=== PATIENT | male | born 1940 | race Caucasian/White ===

== ENCOUNTER 2019-01-13 13:09 | Inpatient (IN) ==
--- NOTE | 2019-01-13 13:51 | Emergency Department Note ---
Disposition Clinical Impression: Mobitz type 1 second degree AV block, Symptomatic bradycardia Disposition: Admitted As Inpatient Condition: Fair Time of Disposition: 20:00 General Adult HPI - General Stated complaint: "slow heart rate" Time Seen by Provider: 01/13/19 13:21 Source: patient Limitations: no limitations - History of Present Illness Pain Scale: 0 - Related Data Home Medications Medication Instructions Recorded Confirmed Carvedilol 12.5 mg PO BID 04/14/17 01/13/19 Levothyroxine [Synthroid] 50 mcg PO 0630 04/14/17 01/13/19 Lisinopril-HCTZ 20-12.5 [Prinzide 1 each PO DAILY 04/14/17 01/13/19 20-12.5] Potassium Chloride [K-Tab ER] 20 meq PO DAILY 04/14/17 01/13/19 Simvastatin [Zocor] 20 mg PO HS 04/14/17 01/13/19 Allergies Allergy/AdvReac Type Severity Reaction Status Date / Time ciprofloxacin [From Cipro] Allergy Unknown Rash Verified 01/13/19 13:16 Sulfa (Sulfonamide Allergy Unknown Vomiting Verified 01/13/19 13:16 Antibiotics) coban Allergy Mild Rash Uncoded 01/13/19 13:16 All systems ED: reviewed and negative except as stated. Past Medical History - Past Medical History Medical history: Reports: arthritis, atrial fibrillation, cancer, hypertension, thyroid disease, TIA Surgical history: Reports: herniorrhaphy, orthopedic, other, prostatectomy, va sectomy Psychiatric history: Reports: no psych history - Social History Smoking Status: Never smoker Smokeless Tobacco Status: No Alcohol use: Reports: none Drug use: Reports: none Physical Exam CONSTITUTIONAL: Alert and oriented X3, well-nourished, well appearing, in no apparent distress HEAD: Normocephalic; atraumatic. EYES: PERRL, no scleral icterus. NOSE: The nose is normal in appearance without rhinorrhea RESP: Normal chest excursion with respiration; breath sounds clear and equal bilaterally; no wheezes, rhonchi, or rales CARD: Regular rhythm, without murmurs, rub or gallop ABD: Non-distended; non-tender, soft,without rigidity, rebound or guarding SKIN: Normal for age and race; warm and dry; no apparent lesions EXTREMITIES: Pulses are 2 plus and equal times 4 extremities, no peripheral edema or calf muscle pain. - General Limitations: no limitations General appearance: alert, in no apparent distress Course Vital Signs Temperature 98.5 F 01/13/19 13:25 Pulse Rate 42 01/13/19 13:25 Respiratory Rate 18 01/13/19 13:25 Blood Pressure 160/59 01/13/19 13:25 O2 Sat by Pulse Oximetry 97 01/13/19 13:25 Temperature 97.8 F 01/13/19 18:39 Pulse Rate 36 01/13/19 18:39 Respiratory Rate 15 01/13/19 18:39 Blood Pressure 187/49 01/13/19 18:39 O2 Sat by Pulse Oximetry 97 01/13/19 18:39 Oxygen Delivery Oxygen Delivery Room Air Medical Decision Making - MDM Narrative Medical decision making narrative: Patient's EKG is consistent with type II AV block and the patient is asymptomatic at this time and is not hypotensive and the patient will be admitted to the hospital and monitored. The beta tho medication could be playing a part. He does have chronic left bundle-branch block. Labs are ordered, chest x-ray. Results pending. EKG shows normal sinus rhythm with rate of 65 with AV block and left bundle-branch block 1351 - Lab Data Result diagrams: 01/13/19 13:43 01/13/19 13:43 Lab Results 01/13/19 01/13/19 Range/Units 13:43 13:43 WBC 8.6 (4.3-11.1) K/mcL RBC 4.65 (4.19-5.50) M/mcL Hgb 14.7 (12.9-16.9) g/dL Hct 44.0 (37.5-50.1) % MCV 94.6 (83.0-100.0) fL MCH 31.6 (28.0-33.3) pg MCHC 33.4 (31.6-35.5) g/dL RDW 14.5 (11.5-14.5) % Plt Count 186 (140-400) K/mcL MPV 11.8 (9.4-12.4) fL Sodium 140 (136-145) mEq/L Potassium 4.2 (3.5-5.1) mEq/L Chloride 108 H (98-107) mEq/L Carbon Dioxide 25 (23-29) mEq/L BUN 23 (8-23) mg/dL Creatinine 0.97 (0.70-1.30) mg/dL Est GFR ( Amer) > 60 (> 60) Est GFR (Non-Af Amer) > 60 (> 60) BUN/Creatinine Ratio 24 (6-26) Glucose 108 H (70-105) mg/dL Calculated Osmolality 294 (280-300) Calcium 8.8 (8.6-10.3) mg/dL Magnesium 2.1 (1.6-2.6) mg/dL Troponin I < 0.03 (< 0.04) ng/mL TSH 1.826 (0.340-5.600) mcIU/mL Attestation Statement - Attestation Attestation: Physician attestation I saw and evaluated the patient and and reviewed the resident's note/PA note/CURTAIN FELLER BLINDSTITCH note, and I agree with the findings and plan. I personally supervised and was present for the beard/critical portions of any procedures. The medical decision- making was reviewed with the BU[employer] M[employer] OPERATOR/PA/Advanced Practice Nurse/Resident Physician. I agree with the documented findings, disposition and treatment plan as described except to the extent set forth below. The patient presents because yesterday at home he checked his pulse and was low and this has been intermittent since yesterday and was still low today so called the doctor's office and asked him to come here. Has a feeling that he is about to get lightheaded but currently no lightheadedness. No chest pain or tightness or discomfort or pressure. No dyspnea. Does have some diaphoresis. He did take his beta tho medication today. No blood in the urine or stool. Social history: No smoking or alcohol. He is here with his .
[2019-01-13 14:09] LABS: Hemoglobin 14.7 g/dL (12.9-16.9); Mean Corpuscular HGB Conc 33.4 g/dL (31.6-35.5); Mean Corpuscular Hemoglobin 31.6 pg (28.0-33.3); Mean Corpuscular Volume 94.6 fL (83.0-100.0); Mean Platelet Volume 11.8 fL (9.4-12.4); Platelet Count 186 K/mcL (140-400); Red Blood Count 4.65 M/mcL (4.19-5.50); Red Cell Distribution Width 14.5 % (11.5-14.5); White Blood Count 8.6 K/mcL (4.3-11.1)
[2019-01-13 14:17] LABS: BUN/Creatinine Ratio 24 (6-26); Blood Urea Nitrogen 23 mg/dL (8-23); Calcium 8.8 mg/dL (8.6-10.3); Carbon Dioxide 25 mEq/L (23-29); Chloride 108 mEq/L (98-107); Glucose 108 mg/dL (70-105); Osmolality,Calculated 294 (280-300); Potassium 4.2 mEq/L (3.5-5.1); Sodium 140 mEq/L (136-145); Troponin I < 0.03 ng/mL (< 0.04); eGFR For African Americans > 60 (> 60); eGFR For Non-African Americans > 60 (> 60)
--- NOTE | 2019-01-13 14:38 | Emergency Department Note ---
Disposition Clinical Impression: Mobitz type 1 second degree AV block, Symptomatic bradycardia Disposition: Admitted As Inpatient Time of Disposition: 16:24 General Adult HPI - General Chief complaint: ED Arrhythmia/Palpitations Stated complaint: "slow heart rate" Time Seen by Provider: 01/13/19 13:21 Source: patient Limitations: no limitations Nursing Notes Reviewed: Yes Vital Signs Reviewed: Yes - History of Present Illness HPI Narrative: Mr. Joseph is a 78-year-old male with history of A. fib on xarelto, hypertension, TIA, hypothyroidism, presenting to the emergency department with progressively worsening generalized fatigue and weakness. He reports having brief episodes of lightheadedness, fatigue, and dyspnea, that seemed to be worsened with exertion. Yesterday he noted that his heart rate was down in the 30s, and that is what prompted him to come to the emergency department today. He denies syncope, chest pain or pressure, cough, abdominal pain, nausea, vomiting, change in bowels, or change in lower extremity edema. He reports his right lower extremity is always a little bit more swollen than his left lower ex tremity, from a prior injury. Has a history of A. fib, and has had ablations in the past. He is on a beta tho. Denies any recent changes in medications. Pain Scale: 0 - Related Data Home Medications Medication Instructions Recorded Confirmed Carvedilol 12.5 mg PO BID 04/14/17 01/13/19 Levothyroxine [Synthroid] 50 mcg PO 0630 04/14/17 01/13/19 Lisinopril-HCTZ 20-12.5 [Prinzide 1 each PO DAILY 04/14/17 01/13/19 20-12.5] Potassium Chloride [K-Tab ER] 20 meq PO DAILY 04/14/17 01/13/19 Simvastatin [Zocor] 20 mg PO HS 04/14/17 01/13/19 Allergies Allergy/AdvReac Type Severity Reaction Status Date / Time ciprofloxacin [From Cipro] Allergy Unknown Rash Verified 01/13/19 13:16 Sulfa (Sulfonamide Allergy Unknown Vomiting Verified 01/13/19 13:16 Antibiotics) coban Allergy Mild Rash Uncoded 01/13/19 13:16 Review of Systems: Admits to slow hear rate, fatigue, generalized weakness, and intermittent dyspnea. Denies syncope, chest pain or pressure, cough, abdominal pain, nausea, vomiting, change in bowels, dysuria, numbness, tingling, or change in lower extremity edema. Past Medical History - Past Medical History Medical history: Reports: arthritis, atrial fibrillation, cancer, hypertension, thyroid disease, TIA Surgical history: Reports: herniorrhaphy, orthopedic, other, prostatectomy, vasectomy Psychiatric history: Reports: no psych history - Social History Smoking Status: Never smoker Smokeless Tobacco Status: No Alcohol use: Reports: none Drug use: Reports: none Physical Exam GEN: No acute distress, A&O3 HEAD: Atraumatic, normocephalic EYES: Pupils symmetric, sclera white, conjunctiva pink HEART: Irregularly irregular, bradycardia, no murmurs LUNGS: Clear to auscultation bilaterally, no wheezes, rhonchi, or crackles ABD: Soft, nontender, nondistended, no guarding or rigidity EXT: Trace edema left lower extremity, +1 pitting edema right lower extremity (chronic and unchanged), pulses +2 NEURO: No focal deficits, cooperative with exam, sensation of light touch intact throughout, strength equal and symmetric in upper extremity and lower extremity - General Limitations: no limitations General appearance: alert, in no apparent distress Course Vital Signs Temperature 98.5 F 01/13/19 13:25 Pulse Rate 42 01/13/19 13:25 Respiratory Rate 18 01/13/19 13:25 Blood Pressure 160/59 01/13/19 13:25 O2 Sat by Pulse Oximetry 97 01/13/19 13:25 Temperature 97.8 F 01/13/19 18:39 Pulse Rate 36 01/13/19 18:39 Respiratory Rate 15 01/13/19 18:39 Blood Pressure 187/49 01/13/19 18:39 O2 Sat by Pulse Oximetry 97 01/13/19 18:39 Oxygen Delivery Oxygen Delivery Room Air Medical Decision Making - [facility] Narrative Medical decision making narrative: Patient's EKG shows a Mobitz type I block, heart rate 65, and old left bundle branch block. His heart rate is fluctuating between the 30s to 60s. He is not having any pain, but he has been symptomatic with light-headedness and fatigue. He is on a beta tho and this could be playing a role in his bradycardia. CBC and chemistries unremarkable. Troponin negative. TSH normal. Patient will be admitted to the hospital for beta tho washout, and potential pacemaker evaluation. Discussed the case with the admitting hospitalist, Dr. Urias, who is accepted this admission. - Lab Data Result diagrams: 01/13/19 13:43 01/13/19 13:43 Lab Results 01/13/19 01/13/19 Range/Units 13:43 13:43 WBC 8.6 (4.3-11.1) K/mcL RBC 4.65 (4.19-5.50) M/mcL Hgb 14.7 (12.9-16.9) g/dL Hct 44.0 (37.5-50.1) % MCV 94.6 (83.0-100.0) fL MCH 31.6 (28.0-33.3) pg MCHC 33.4 (31.6-35.5) g/dL RDW 14.5 (11.5-14.5) % Plt Count 186 (140-400) K/mcL MPV 11.8 (9.4-12.4) fL Sodium 140 (136-145) mEq/L Potassium 4.2 (3.5-5.1) mEq/L Chloride 108 H (98-107) mEq/L Carbon Dioxide 25 (23-29) mEq/L BUN 23 (8-23) mg/dL Creatinine 0.97 (0.70-1.30) mg/dL Est GFR ( Amer) > 60 (> 60) Est GFR (Non-Af Amer) > 60 (> 60) BUN/Creatinine Ratio 24 (6-26) Glucose 108 H (70-105) mg/dL Calculated Osmolality 294 (280-300) Calcium 8.8 (8.6-10.3) mg/dL Magnesium 2.1 (1.6-2.6) mg/dL Troponin I < 0.03 (< 0.04) ng/mL TSH 1.826 (0.340-5.600) mcIU/mL
[2019-01-13 15:49] LABS: Thyroid Stimulating Hormone 1.826 mcIU/mL (0.340-5.600)
[2019-01-13] MEDS ORDERED: Naloxone 0.4 MG/ML INJ IVP PRN (16:57)
[2019-01-13] MEDS ORDERED: Acetaminophen 325 MG TABLET PO PRN (16:57)
[2019-01-13 17:15] LABS: Magnesium 2.1 mg/dL (1.6-2.6)
--- NOTE | 2019-01-13 17:35 | Internal Med History&Physical ---
<Barry Malone - Last Filed: 01/13/19 18:38> Date of Encounter: 01/13/19 Time of Encounter: 17:45 Internal Medicine - H&P: HPI Chief complaint: lightheadedness Admitted From: Home Plans for Post Hospital Care: Home History of present illness: Mr. Joseph is a 78 year old male w/PMHx A-fib, HTN, hypothyroid, TIA who presented to ED for 2 history of symptomatic bradycardia. Patient reported HR in the mid to upper 30s yesterday and again this morning which prompted his visit to the ED today. EKG in the ED revealed new onset Mobitz type 1 AV block vs Mobitz II. He was asymptomatic while in the ED and during admission, vitals were stable other than bradycardic episodes and he denied cp, sob, diaphoresis. Patient remains normotensive. Patient reports 2-3 month history of progressive lightheadedness, occasional sob, dizziness with exertion. This occurs when he exerts himself during outdoor chores, long walks. Initially saw his PCP Dr. Villalobos who decided to monitor patient and ordered Echo and Carotid U/S. Patient has a history of anxiety and was recently started back on Prozac by PCP. He reports occasional episodes of "chest tightness that feels like anxiety" and feeling like "my body doesnt get what it needs." Overall the patient is comfortable, in NAD. Initial labs were unremarkable, t roponin WNL, Mg 2.1, electrolytes normal. EP cards was consulted and Dr. Olivier was home restoration service supervisor and reviewed the ED EKG and reported it as Mobitz type 1, wenkeback. He recommended to observe at this time. Patient admitted to the hospitalist service for obs. Past Med Surg Social Fam HX - Past Medical History Medical history: arthritis, atrial fibrillation, cancer, hypertension, thyroid disease, TIA Additional medical history: CATARACTS SLEEP APNEA DIVERTICULOSIS Psychiatric history: no psych history - Past Surgical History Surgical History: herniorrhaphy, orthopedic, other, prostatectomy, vasectomy Additional surgical history: A FIB ABLATION. T&A. COLONOSCOPY. CATARACT SURGERY. CYST REMOVAL FROM BACK - Social History Smoking Status: Never smoker Smokeless Tobacco Status: No Alcohol use: none Drug use: none Internal Medicine - H&P: Meds Carvedilol 12.5 mg PO BID 04/14/17 [History] Levothyroxine [Synthroid] 50 mcg PO 0630 04/14/17 [History] Lisinopril-HCTZ 20-12.5 [Prinzide 20-12.5] 1 each PO DAILY 04/14/17 [History] Potassium Chloride [K-Tab ER] 20 meq PO DAILY 04/14/17 [History] Simvastatin [Zocor] 20 mg PO HS 04/14/17 [History] Allergy/AdvReac Type Severity Reaction Status Date / Time ciprofloxacin [From Cipro] Allergy Unknown Rash Verified 01/13/19 13:16 Sulfa (Sulfonamide Allergy Unknown Vomiting Verified 01/13/19 13:16 Antibiotics) coban Allergy Mild Rash Uncoded 01/13/19 13:16 All Systems PM: A 10-system review of systems was performed and is negative for pertinent findings except as documented above in the HPI. - Constitutional Constitutional: weakness, no chills, no fatigue, no fever(s), no falls - EENT Eyes: no blurry vision, no change in vision, no loss of vision Ears: no decreased hearing, no tinnitus Nose, mouth and throat: no dysphagia, no neck mass, no neck pain, no throat swelling, no tongue swelling - Cardiovascular Cardiovascular ROS IM: dyspnea on exertion (occasional), irregular heart rhythm, lightheadedness, no diaphoresis, no palpitations, no syncope - Respiratory Respiratory: no cough, no wheezing, no chest congestion - Gastrointestinal Gastrointestinal: no abdominal pain, no constipation, no diarrhea, no nausea, no vomiting - Genitourinary Genitourinary ROS male: no urinary frequency, no urinary incontinence - Neurological Neurological ROS: dizziness (mild), weakness, no behavioral changes, no confusion, no focal weakness, no vertigo - Psychiatric Psychiatric: anxiety, panic attacks (historically), no behavioral changes, no hallucinations - Endocrine Endocrine IM: no excessive sweating, no fatigue - Hematologic/Lymphatic Hematologic/Lymphatic: no easy bleeding, no easy bruising - Constitutional Vitals: Temp Pulse Resp BP Pulse Ox 98.5 F 59 18 164/69 95 01/13/19 13:25 01/13/19 14:08 01/13/19 16:58 01/13/19 16:58 01/13/19 14:08 General appearance: Present: A&O X 3, no acute distress Exam: see below - Head Head exam: Present: atraumatic, normocephalic - Eye Eye exam: Present: EOMI, PERRL, conjuntiva pink, sclera anicteric Pupils: Present: normal accommodation - ENT ENT exam: Present: mucous membranes moist - Neck Neck exam general surgery: Present: trachea midline. Absent: lymphadenopathy, tenderness, thyromegaly Additional comments: no carotid bruits bilaterally - Respiratory Respiratory exam: Present: CTAB. Absent: respiratory distress, rhonchi, wheezes - Cardiovascular Cardiovascular exam: Present: bradycardia (regular rhythm), +S1, +S2. Absent: JVD, systolic murmur - GI/Abdominal GI/Abdominal exam: Present: normal bowel sounds, soft. Absent: firm, guarding, tenderness - Extremities Exam Extremities exam: Absent: cyanotic, joint swelling, pedal edema, tenderness - Neurological Exam Neurological exam: Present: alert, CN II-XII intact, oriented X3, reflexes normal. Absent: motor sensory deficit, no focal deficits, facial droop, speech deficit - Psychiatric Psychiatric exam: Present: normal affect, normal mood - Skin Skin exam: Present: normal color. Absent: rash Internal Med - H&P Results - Labs CBC & Chem 7: 01/13/19 13:43 01/13/19 13:43 Labs: Short CBC 01/13/19 Range/Units 13:43 WBC 8.6 (4.3-11.1) K/mcL Hgb 14.7 (12.9-16.9) g/dL Hct 44.0 (37.5-50.1) % Plt Count 186 (140-400) K/mcL BMP 01/13/19 13:43 Sodium 140 Potassium 4.2 Chloride 108 H Carbon Dioxide 25 BUN 23 Creatinine 0.97 Glucose 108 H Calcium 8.8 Cardiac Enzymes 01/13/19 Range/Units 13:43 Troponin I < 0.03 (< 0.04) ng/mL - Impressions ITS Impressions Chest X-Ray 01/13/19 13:47 IMPRESSION: 1. No acute cardiopulmonary disease. D/ / Cassie Jaffe MD / Cassie Jaffe MD Interpreting Provider: Cassie Jaffe MD - Assessment and Plan (1) Mobitz type 1 second degree AV block Current Visit: Yes Status: Acute Assessment and plan: Patient with new onset Mobitz type 1 AV block. Patient is stable, asymptomatic at this time. Hx of A-fib s/p ablation in 2012. Follows with Dr[facility] Shaffer at [facility]. No medication changes. EKD in ED w/o acute ischemic changes. Has chronic LBBB. - Hold coreg 12.5 mg BID. - Telemetry. - Observe patient for acute changes. - Repeat EKG tomorrow. - Trend troponins. - Echo ordered for tomorrow. (2) Symptomatic bradycardia Current Visit: Yes Status: Acute Assessment and plan: Patient with 2-3 month history of symptomatic bradycardia. Sxs include lighthead edness, weakness, pre-syncope. Denies any syncopal episodes or falls. Currently asymptomatic with rate in the 30s-70s. - Telemetry. - Continue to monitor and observe for acute changes. - Hold coreg. Continue lisinopril-HCTZ in am. (3) Hypertension Current Visit: Yes Status: Chronic Assessment and plan: Patient with elevated BP. Will continue to hold home bp meds. Hold coreg at this time. Will restart home lisinopril-HCTZ in morning. Asymptomatic. Qualifiers: Hypertension type: essential hypertension Qualified Code(s): I10 - Essential (primary) hypertension (4) A-fib Current Visit: Yes Status: Chronic Assessment and plan: Patient w/history of a-fib s/p ablation in 2012. Rate is currently regular although bradycardic episodes. Asymptomatic. - Continue to monitor with tele. Qualifiers: Atrial fibrillation type: chronic Qualified Code(s): I48.2 - Chronic atrial fibrillation - Time Spent With Patient Total time spent is greater than 50% in coordination of care (as documented) at patient's floor/unit and/or counseling patient: <Monique Tabares - Last Filed: 01/14/19 07:22> Date of Encounter: 01/14/19 Internal Medicine - H&P: HPI History of present illness: Mr. Joseph is a 78 year old male All Systems PM: A 10-system review of systems was performed and is negative for pertinent findings except as documented above in the HPI. - Constitutional Vitals: Temp Pulse Resp BP Pulse Ox 98.3 F 35 16 164/92 97 01/14/19 07:15 01/14/19 07:15 01/14/19 07:15 01/14/19 07:15 01/14/19 07:15 Internal Med - H&P Results - Labs CBC & Chem 7: 01/14/19 00:58 01/14/19 00:58 Labs: Short CBC 01/13/19 01/14/19 Range/Units 13:43 00:58 WBC 8.6 8.3 (4.3-11.1) K/mcL Hgb 14.7 13.9 (12.9-16.9) g/dL Hct 44.0 42.3 (37.5-50.1) % Plt Count 186 178 (140-400) K/mcL Neutrophils # 5.4 (1.6-8.9) K/mcL BMP 01/13/19 01/14/19 13:43 00:58 Sodium 140 139 Potassium 4.2 4.1 Chloride 108 H 106 Carbon Dioxide 25 24 BUN 23 20 Creatinine 0.97 0.96 Glucose 108 H 90 Calcium 8.8 8.5 L Cardiac Enzymes 01/13/19 01/13/19 01/14/19 Range/Units 13:43 18:55 00:58 Troponin I < 0.03 < 0.03 < 0.03 (< 0.04) ng/mL - Impressions ITS Impressions Chest X-Ray 01/13/19 13:47 IMPRESSION: 1. No acute cardiopulmonary disease. D/ / Cassie Jaffe MD / Cassie Jaffe MD Interpreting Provider: Cassie Jaffe MD - Time Spent With Patient Total time spent is greater than 50% in coordination of care (as documented) at patient's floor/unit and/or counseling patient: - Attending Attestation I examined this patient and my medical decision-making was reviewed with the Resident Physician Dr Malone. I agree with the documented findings, disposition and treatment plan as described except to the extent set forth below. Mr Joseph is being observed for bradycardia and AV block awake, no cp, pressure, sob palpitations or presyncope. He has no sxs at rest. He has been taking herbal supplement intermittently for months but started taking daily 3w ago otherwise no new med changes. He is full code gen- alert, awake,appears stated age cv- angel rate 30s-upper 50s on tele at bedside and reg rhythm, normal s1,s2, no murmurs appreciated lungs- ctabl, no wheezing, rhonchi or crackles abd- soft, non tender, non distended, + bs neuro- AAOx3 Bradycardia, currently asx, normal BPs Prior EKGs reviewed and LBBB and first degree AVB EKG in ED without acute ischemic changes, with chronic LBBB but with new type II avb (appears initally Mobitz type I though later in rhythm lead possibly Mobitz II) -EP cards consulted and EKG reviewed by Dr Olivier and suspects Mobitz type I, hold coreg, hold herbal supplement, cont tele, trend trop and check echo, am ekg, monitor qtc, K and mag are at goal HTN- hold coreg, monitor BP tonight, may resume acei/hctz in am further dx and plan as noted by resident
--- NOTE | 2019-01-13 18:04 | Electrocardiograph Report ---
[place] [id number] Test Date: 2019-01-13 Pat Name: Sha Joseph Department: [id number] Room: [id number] Gender: M Security Manager: : 1940 Requested By: Reinier Stewart Order Number: [id number] Reading MD: Sanjeev Baltazar Measurements Intervals Simon Rate: 65 P: 53 [place]: QRS: 9 QRSD: 167 T: 129 QT: 474 QTc: 493 Interpretive Statements Sinus rhythm Second deg AVB, Mobitz I (Reynaldokebach) Left bundle branch block Electronically Signed On 01-13-2019 18:03:17 EDT by Sanjeev Baltazar
--- NOTE | 2019-01-13 18:10 | Event Note ---
Date of Encounter: 01/13/19 Time of Encounter: 17:40 to serve as attending attestation pending completion of resident H&P I examined this patient and my medical decision-making was reviewed with the Resident Physician Dr Malone. I agree with the documented findings, disposition and treatment plan as described except to the extent set forth below. Mr Joseph is being observed for bradycardia and AV block awake, no cp, pressure, sob palpitations or presyncope. He has no sxs at rest. He has been taking herbal supplement intermittently for months but started taking daily 3w ago otherwise no new med changes. He is full code gen- alert, awake,appears stated age cv- angel rate 30s-upper 50s on tele at bedside and reg rhythm, normal s1,s2, no murmurs appreciated lungs- ctabl, no wheezing, rhonchi or crackles abd- soft, non tender, non distended, + bs neuro- AAOx3 Bradycardia, currently asx, normal BPs Prior EKGs reviewed and LBBB and first degree AVB EKG in ED without acute ischemic changes, with chronic LBBB but with new type II avb (appears initally Mobitz type I though later in rhythm lead possibly Mobitz II) -EP cards consulted and EKG reviewed by Dr Olivier and suspects Mobitz type I, hold coreg, hold herbal supplement, cont tele, trend trop and check echo, am ekg, monitor qtc, K and mag are at goal HTN- hold coreg, monitor BP tonight, may resume acei/hctz in am further dx and plan as noted by resident
[2019-01-14 01:31] LABS: Basophils % 0.5 %; Eosinophils # 0.1 K/mcL (0.0-0.6); Eosinophils % 1.6 %; Hematocrit 42.3 % (37.5-50.1); Hemoglobin 13.9 g/dL (12.9-16.9); Immature Granulocytes % 0.4 % (0-4); Lymphocytes # 1.8 K/mcL (0.6-4.6); Lymphocytes % 21.7 %; Mean Corpuscular HGB Conc 32.9 g/dL (31.6-35.5); Mean Corpuscular Hemoglobin 31.8 pg (28.0-33.3); Mean Corpuscular Volume 96.8 fL (83.0-100.0); Mean Platelet Volume 11.9 fL (9.4-12.4); Monocytes # 0.9 K/mcL (0.0-1.3); Monocytes % 10.7 %; Neutrophils # 5.4 K/mcL (1.6-8.9); Platelet Count 178 K/mcL (140-400); Red Blood Count 4.37 M/mcL (4.19-5.50); Red Cell Distribution Width 14.3 % (11.5-14.5); Segmented Neutrophils % 65.1 %; White Blood Count 8.3 K/mcL (4.3-11.1)
[2019-01-14 01:54] LABS: BUN/Creatinine Ratio 21 (6-26); Blood Urea Nitrogen 20 mg/dL (8-23); Calcium 8.5 mg/dL (8.6-10.3); Carbon Dioxide 24 mEq/L (23-29); Chloride 106 mEq/L (98-107); Glucose 90 mg/dL (70-105); Magnesium 2.1 mg/dL (1.6-2.6); Osmolality,Calculated 290 (280-300); Potassium 4.1 mEq/L (3.5-5.1); Sodium 139 mEq/L (136-145); eGFR For African Americans > 60 (> 60); eGFR For Non-African Americans > 60 (> 60)
[2019-01-14] MEDS: Lisinopril-HCTZ 20-12.5mg TABLET PO SCH (07:30)
--- NOTE | 2019-01-14 08:39 | Internal Med Progress Note ---
<Barry Malone - Last Filed: 01/14/19 13:11> Hospitalist Progress Note - Encounter Date of Encounter: 01/14/19 Time of Encounter: 08:38 - Subjective Interval History: Patient seen in conjunction with attending physician. He was awake, alert, in bed comfortably with family at bedside. No acute events overnight. He is still bradycardic with rate fluctuating between 30-50s on tele. Continues to remain asymptomatic. Denies cp, lightheadedness, dizziness, diaphoresis. Has some sob when ambulating, but comfortable. - Exam Vitals: Temp Pulse Resp BP Pulse Ox 98.3 F 35 16 164/92 97 01/14/19 07:15 01/14/19 07:15 01/14/19 07:15 01/14/19 07:15 01/14/19 07:15 Exam: Gen: A&Ox3, NAD. Head: atraumatic, normocephalic. Eyes: EOMI, conjuctiva pink. CV: Bradycardic rate 30s on tele at bedside rest. Regular rhythm, S1/S2 WNL, no murmurs appreciated Lungs: CTAB, no wheezes, rales, rhonchi. Abdomen: Soft, non tender, non distended, normoactive bowel sounds. Ext: RLE with chronic, trace, non pitting edema. No cyanosis, pulses symmetric. Skin: Warm, dry, no rashes. Neuro: No focal deficits, acute weakness - Assessment and Plan (1) Mobitz (type) II atrioventricular block Current Visit: Yes Status: Acute Assessment and Plan: Patient initially presented with asymptomatic bradycardia. Initial EKG in ED revealed Mobitz type I confirmed by Dr. Olivier. Telemetry review by EP revealed episodes of Mobitz I and Mobitz II overnight. - Continue coreg washout over next 24-48 hours per cardiology. - Monitor HR closely to determine if PPM necessary per cards. - Defib pads to be left in place. - Nursing notified to be alert for acute changes. (2) Mobitz type 1 second degree AV block Current Visit: Yes Status: Acute Assessment and Plan: Patient with new onset Mobitz type 1 AV block. Continues to remain asymptomatic. EKG in ED w/o acute ischemic changes. Has chronic LBBB. Repeat 12-lead EKG this morning revealed patients chronic type 1 AV block w/o evidence of Mobitz I/II. EP cards have been consulted. - Telemetry reviewed by EP cards, revealed Mobitz type I and mobitz II overnight. - Defib pads will be left in place. - Hold coreg for washout over next 24-48 hours. - Telemetry. - Nursing notified to monitor for acute changes. - Troponins negative to date. - Repeat echo revealed LVEF 50-55%. (3) Symptomatic bradycardia Current Visit: Yes Status: Acute Assessment and Plan: Patient remains asymptomatic at rest. Has some mild SOB with exertion while ambulating. Denies any syncopal episodes or falls. Currently asymptomatic with rate in the 30s-60s on tele. - Telemetry. - Continue to monitor and observe for acute changes. - Hold coreg. (4) Hypertension Current Visit: Yes Status: Chronic Assessment and Plan: Patient with history of essential HTN. Initially held home bp meds, since have been re-started. - Hold coreg. - Continue lisinopril-HCTZ. (5) A-fib Current Visit: Yes Status: Chronic Assessment and Plan: Patient w/history of a-fib s/p ablation in 2012. Rate is currently regular although bradycardic episodes. Asymptomatic. - Continue to monitor tele per cards. DVT Prophylaxis: SCDs - Time Spent with Patient Total time spent is greater than 50% in coordination of care (as documented) at patient's floor/unit and/or counseling patient: Plan of Care Discussed with: patient Internal Medicine: Result - Labs CBC & Chem 7: 01/14/19 00:58 01/14/19 00:58 Labs: Short CBC 01/13/19 01/14/19 Range/Units 13:43 00:58 WBC 8.6 8.3 (4.3-11.1) K/mcL Hgb 14.7 13.9 (12.9-16.9) g/dL Hct 44.0 42.3 (37.5-50.1) % Plt Count 186 178 (140-400) K/mcL Neutrophils # 5.4 (1.6-8.9) K/mcL BMP 01/13/19 01/14/19 13:43 00:58 Sodium 140 139 Potassium 4.2 4.1 Chloride 108 H 106 Carbon Dioxide 25 24 BUN 23 20 Creatinine 0.97 0.96 Glucose 108 H 90 Calcium 8.8 8.5 L Cardiac Enzymes 01/13/19 01/13/19 01/14/19 Range/Units 13:43 18:55 00:58 Troponin I < 0.03 < 0.03 < 0.03 (< 0.04) ng/mL - Impressions Impressions Chest X-Ray 01/13/19 13:47 IMPRESSION: 1. No acute cardiopulmonary disease. D/ / Cassie Jaffe MD / Cassie Jaffe MD Interpreting Provider: Cassie Jaffe MD Consult Discharge Plan - Plan Referrals: Morris Villalobos MD [Primary Care Provider] - <Monique Tabares - Last Filed: 01/14/19 13:37> Hospitalist Progress Note - Encounter Date of Encounter: 01/14/19 - Exam Vitals: Temp Pulse Resp BP Pulse Ox 98.3 F 54 16 144/82 97 01/14/19 11:42 01/14/19 11:42 01/14/19 11:42 01/14/19 11:42 01/14/19 11:42 - Time Spent with Patient Total time spent is greater than 50% in coordination of care (as documented) at patient's floor/unit and/or counseling patient: Internal Medicine: Result - Labs CBC & Chem 7: 01/14/19 00:58 01/14/19 00:58 Labs: Short CBC 01/13/19 01/14/19 Range/Units 13:43 00:58 WBC 8.6 8.3 (4.3-11.1) K/mcL Hgb 14.7 13.9 (12.9-16.9) g/dL Hct 44.0 42.3 (37.5-50.1) % Plt Count 186 178 (140-400) K/mcL Neutrophils # 5.4 (1.6-8.9) K/mcL BMP 01/13/19 01/14/19 13:43 00:58 Sodium 140 139 Potassium 4.2 4.1 Chloride 108 H 106 Carbon Dioxide 25 24 BUN 23 20 Creatinine 0.97 0.96 Glucose 108 H 90 Calcium 8.8 8.5 L Cardiac Enzymes 01/13/19 01/13/19 01/14/19 Range/Units 13:43 18:55 00:58 Troponin I < 0.03 < 0.03 < 0.03 (< 0.04) ng/mL - Impressions Impressions Chest X-Ray 01/13/19 13:47 IMPRESSION: 1. No acute cardiopulmonary disease. D/ / Cassie Jaffe MD / Cassie Jaffe MD Interpreting Provider: Cassie Jaffe MD Echocardiogram 01/13/19 21:46 Impressions: Sinus bradycardia, HR 30s, bundle branch block. Possible 2:1 AV block during study. LVEF 50-55%. Normal LV chamber size and function. Mild concentric left ventricular hypertrophy. Mild left ventricular diastolic dysfunction. Atypical septal motion consistent with paced rhythm. Normal right ventricular structure and function. Mild mitral regurgitation. Mild tricuspid regurgitation. Mild pulmonary hypertension. Left Ventricular Wall Motion: Rest Echo Findings All wall segments showed normal motion. Findings: Study Quality * Technically adequate exam. ECG Findings * Sinus bradycardia with a bundle branch block. Left Ventricle * LVEF 50-55%. * Normal LV chamber size and function. * Mild concentric left ventricular hypertrophy. * Mild left ventricular diastolic dysfunction. * Atypical septal motion consistent with paced rhythm. Right Ventricle * Normal right ventricular structure and function. Left Atrium * Mildly dilated left atrium. Right Atrium * Mildly dilated right atrium. Interatrial Septum * Interatrial septum not well evaluated. Aortic Valve * Trileaflet aortic valve. * No aortic regurgitation. * No aortic stenosis. Mitral Valve * Mild mitral annular calcification * Mild mitral regurgitation. * No mitral stenosis. Tricuspid Valve * Normal tricuspid valve structure. * Mild tricuspid regurgitation. * Mild pulmonary hypertension. Pulmonic Valve * Normal pulmonic valve structure and function. * No pulmonic regurgitation. Aorta * Normally sized aortic root. Pericardium * The pericardium appears normal. IVC * Normal IVC dimensions and inspiratory collapse. Pulmonary Artery * Normal visualized portions of the main pulmonary artery. - Attending Attestation I examined this patient and my medical decision-making was reviewed with the Resident Physician Dr Malone. I agree with the documented findings, disposition and treatment plan as described except to the extent set forth below. Mr Joseph is being observed for bradycardia and Type II AVB awake, no cp, pressure, sob palpitations or presyncope. gen- alert, awake,appears stated age cv- angel rate 29son tele at bedside and reg rhythm, normal s1,s2, radial pulse 2+ lungs- ctabl abd- soft, non tender, non distended, + bs neuro- AAOx3 Bradycardia, currently asx, normal BPs Mobitz I and II on tele last night, am ekg reviewed and sinus angel with first degree AVB -appreciate EP cards input, cont BB wash out, EP monitoring for need for PPM HTN- hold coreg, cont acei/hctz further dx and plan as noted by resident <Barry Malone M - Last Filed: 01/14/19 13:11> (4) Hypertension Qualifiers: Hypertension type: essential hypertension Qualified Code(s): I10 - Essential (primary) hypertension (5) A-fib Qualifiers: Atrial fibrillation type: paroxysmal Qualified Code(s): I48.0 - Paroxysmal atrial fibrillation
--- NOTE | 2019-01-14 09:06 | Electrophysiology Consult Note ---
<Kim White - Last Filed: 01/14/19 10:05> Date of Encounter: 01/14/19 Time of Encounter: 08:00 Assessment and Plan (1) AV block Current Visit: Yes Status: Acute Patient presented with presyncope, dizziness. Reports ongoing symptoms since September 2018. Loop recorder checked 12/13/18--no episodes of bradycardia, AV block. Presenting ECG: Mobitz type I, rate 65 BPM. Has been on Coreg 12.5 mg BID, last dose 01/13/19 AM. Telemetry reviewed, episodes of Mobitz type I and type II overnight. No significant electrolyte abnormality noted. TSH normal. Patient is hemodynamically stable. Continue to wash out betablocker for additional 24-48 hours and monitor HR closely to determine if PPM needed. TTE pending. Will continue to follow. (2) A-fib Current Visit: Yes Status: Chronic Hx of PAF s/p cryo ablation around 6 years ago. Reports Eliquis d/c'ed 1 year ago due to no PAF seen on loop recorder. Continue to monitor telemetry. Loop recorder checked last month 12/13/18--no PAF noted, no AV block. Frequent PACs. Qualifiers: Atrial fibrillation type: paroxysmal Qualified Code(s): I48.0 - Paroxysmal atrial fibrillation Discussion w patient/family: The assessment and plan as outlined above was discussed with the patient and/or family members who expressed understanding and agreement. All questions were answered. Thank you for involving us in the care of your patient. Please call with any questions. The patient will be discussed and reviewed with Dr. Shaffer; changes to be made accordingly. History of Present Illness Consult date: 01/14/19 Requesting physician: Monique Tabares Consult reason: AV block Chief complaint: Presyncope, bradycardia History of present illness: Mr. Joseph is a 78 year old male with PMHx significant of PAF s/p cryoablation, HTN, and HLD who presented to the ED with complaints of pre-syncope associated with low heart rate. Patient reports near syncopal episode this past September while working outside in the yard, he stopped to rest and symptoms resolved. He reports frequent episodes of dizziness and lightheadedness since initial event. Yesterday, he reported he felt anxious and checked his BP/HR and found that his HR was 34. He then went to the ED for further evaluation. Upon arrival to ED, ECG demonstrated Mobitz type I with rate of 65 BPM. Cardiology consulted for further recommendations. Past Med Surg Social Fam HX - Past Medical History Attestation: Yes The following information was validated with the patient. Source: patient Medical history: arthritis, atrial fibrillation, cancer, hypertension, thyroid disease, TIA Additional medical history: Cataracts, sleep apnea, diverticulosis, basal cell carcinoma, prostate cancer Psychiatric history: no psych history - Past Surgical History Surgical History: cataract Additional surgical history: Ablation x2, shoulder surgery, R knee scope, tonsilectomy, cyst removal from back - Social History Smoking Status: Never smoker Smokeless Tobacco Status: No Alcohol use: none Drug use: none - Family History Father Living Status: Age at : 90 Cause of : Dementia Hx Family Cancer: Yes (Lung cancer) Mother History Unknown: Yes Medications and Allergies Carvedilol 12.5 mg PO BID 04/14/17 [History] Levothyroxine [Synthroid] 50 mcg PO 0630 04/14/17 [History] Lisinopril-HCTZ 20-12.5 [Prinzide 20-12.5] 1 each PO DAILY 04/14/17 [History] Potassium Chloride [K-Tab ER] 20 meq PO DAILY 04/14/17 [History] Simvastatin [Zocor] 20 mg PO HS 04/14/17 [History] Allergy/AdvReac Type Severity Reaction Status Date / Time ciprofloxacin [From Cipro] Allergy Unknown Rash Verified 01/13/19 13:16 Sulfa (Sulfonamide Allergy Unknown Vomiting Verified 01/13/19 13:16 Antibiotics) coban Allergy Mild Rash Uncoded 01/13/19 13:16 All Systems Review: The remainder of the systems were reviewed and are negative - Cardiovascular Cardiovascular: as per HPI Physical Examination Vital Signs, Last 4 Hours Temp Pulse Resp BP Pulse Ox 01/14/19 07:15 98.3 F 35 16 164/92 97 01/14/19 05:51 98.0 F 53 18 195/101 97 General: Conversant, No Apparent Distress HEENT: Atraumatic, Normocephaly Cardiac: Other (bradycardiac, irregular) Lungs: Normal Breath Sounds Neuro: Alert and responsive Abdomen: Soft Skin: No rashes noted on visualized skin Musculoskeletal: No Chest Wall Tenderness Extremities: No Edema, Normal Pulses Results 01/14/19 00:58 01/14/19 00:58 Lab Results 01/13/19 01/13/19 01/13/19 13:43 13:43 18:55 WBC 8.6 Hgb 14.7 Hct 44.0 Plt Count 186 Sodium 140 Potassium 4.2 Chloride 108 H Carbon Dioxide 25 BUN 23 Creatinine 0.97 Glucose 108 H Calcium 8.8 Magnesium 2.1 Troponin I < 0.03 < 0.03 TSH 1.826 01/14/19 01/14/19 01/14/19 00:58 00:58 00:58 WBC 8.3 Hgb 13.9 Hct 42.3 Plt Count 178 Sodium 139 Potassium 4.1 Chloride 106 Carbon Dioxide 24 BUN 20 Creatinine 0.96 Glucose 90 Calcium 8.5 L Magnesium 2.1 Troponin I < 0.03 TSH - Imaging and Cardiology Echo: pending Other Results: Telemetry: avg HR=45 BPM. Mobitz type I and II seen. - EKG Interpretation EKG results cardiology: personally reviewed Consult Discharge Plan - Plan Referrals: Morris Villalobos MD [Primary Care Provider] - <Seth Shaffer - Last Filed: 01/14/19 10:28> Date of Encounter: 01/14/19 - Attending Attestation I have personally performed a face to face evaluation on this patient. I have reviewed and agree with the care plan. History and Exam by me shows: History of AF, Loop recorder in place. He noted a slow heart rate at home and some dizziness. 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 No detections noted on recent loop recorder check. Would hold coreg and if bradycardia dos not resolve would need pacemaker. Assessment and Plan Discussion w patient/family: The assessment and plan as outlined above was discussed with the patient and/or family members who expressed understanding and agreement. All questions were answered. Thank you for involving us in the care of your patient. Please call with any questions. History of Present Illness History of present illness: Mr. Joseph is a 78 year old male All Systems Review: The remainder of the systems were reviewed and are negative Physical Examination Vital Signs, Last 4 Hours Temp Pulse Resp BP Pulse Ox 01/14/19 07:15 98.3 F 35 16 164/92 97 Results 01/14/19 00:58 01/14/19 00:58 Lab Results 01/13/19 01/13/19 01/13/19 13:43 13:43 18:55 WBC 8.6 Hgb 14.7 Hct 44.0 Plt Count 186 Sodium 140 Potassium 4.2 Chloride 108 H Carbon Dioxide 25 BUN 23 Creatinine 0.97 Glucose 108 H Calcium 8.8 Magnesium 2.1 Troponin I < 0.03 < 0.03 TSH 1.826 01/14/19 01/14/19 01/14/19 00:58 00:58 00:58 WBC 8.3 Hgb 13.9 Hct 42.3 Plt Count 178 Sodium 139 Potassium 4.1 Chloride 106 Carbon Dioxide 24 BUN 20 Creatinine 0.96 Glucose 90 Calcium 8.5 L Magnesium 2.1 Troponin I < 0.03 TSH
--- NOTE | 2019-01-14 11:09 | Electrocardiograph Report ---
[address] [address] Test Date: 2019-01-14 Pat Name: Sha Joseph Department: 111 Room: 2NE17 Gender: M Info [employer] Operator: Raw : 1940 Requested By: Shankar Muñoz Order Number: [id number] Reading MD: Seth Shaffer Measurements Intervals [place] Rate: 35 P: [place]: 0 QRS: -35 QRSD: 169 T: 35 QT: 541 QTc: 442 Interpretive Statements SINUS BRADYCARDIA WITH 2:1 AV BLOCK LEFT BUNDLE BRANCH BLOCK Electronically Signed On 01-14-2019 11:08:23 EDT by Seth Shaffer
[2019-01-15 04:32] LABS: Basophils % 0.5 %; Eosinophils # 0.1 K/mcL (0.0-0.6); Eosinophils % 1.6 %; Hematocrit 43.1 % (37.5-50.1); Hemoglobin 14.3 g/dL (12.9-16.9); Immature Granulocytes % 0.4 % (0-4); Lymphocytes % 23.9 %; Mean Corpuscular HGB Conc 33.2 g/dL (31.6-35.5); Mean Corpuscular Hemoglobin 31.8 pg (28.0-33.3); Mean Platelet Volume 12.1 fL (9.4-12.4); Monocytes # 0.9 K/mcL (0.0-1.3); Monocytes % 10.8 %; Neutrophils # 5.2 K/mcL (1.6-8.9); Platelet Count 171 K/mcL (140-400); Red Blood Count 4.49 M/mcL (4.19-5.50); Red Cell Distribution Width 14.3 % (11.5-14.5); Segmented Neutrophils % 62.8 %; White Blood Count 8.3 K/mcL (4.3-11.1)
[2019-01-15 04:51] LABS: BUN/Creatinine Ratio 24 (6-26); Blood Urea Nitrogen 23 mg/dL (8-23); Calcium 8.8 mg/dL (8.6-10.3); Carbon Dioxide 27 mEq/L (23-29); Chloride 103 mEq/L (98-107); Glucose 99 mg/dL (70-105); Osmolality,Calculated 294 (280-300); Potassium 3.9 mEq/L (3.5-5.1); Sodium 140 mEq/L (136-145); eGFR For African Americans > 60 (> 60); eGFR For Non-African Americans > 60 (> 60)
--- NOTE | 2019-01-15 08:41 | Internal Med Progress Note ---
<Monique Tabares - Last Filed: 01/15/19 12:39> Hospitalist Progress Note - Encounter Date of Encounter: 01/15/19 - Exam Vitals: Temp Pulse Resp BP Pulse Ox 98.4 F 36 16 127/75 97 01/15/19 11:36 01/15/19 11:36 01/15/19 11:36 01/15/19 11:36 01/15/19 11:36 - Time Spent with Patient Total time spent is greater than 50% in coordination of care (as documented) at patient's floor/unit and/or counseling patient: Internal Medicine: Result - Labs CBC & Chem 7: 01/15/19 03:34 01/15/19 03:34 Labs: Short CBC 01/15/19 Range/Units 03:34 WBC 8.3 (4.3-11.1) K/mcL Hgb 14.3 (12.9-16.9) g/dL Hct 43.1 (37.5-50.1) % Plt Count 171 (140-400) K/mcL Neutrophils # 5.2 (1.6-8.9) K/mcL BMP 01/15/19 03:34 Sodium 140 Potassium 3.9 Chloride 103 Carbon Dioxide 27 BUN 23 Creatinine 0.97 Glucose 99 Calcium 8.8 Consult Discharge Plan - Plan Referrals: Morris Villalobos MD [Primary Care Provider] - - Attending Attestation I examined this patient and my medical decision-making was reviewed with the Resident Physician Dr Urbano. I agree with the documented findings, disposition and treatment plan as described except to the extent set forth below. Mr Joseph requires inpt hospitaliztion for symptomatic bradyccardia with Type I and II AVBs requiring inpt monitoring and likely pacemaker awake, no cp, pressure, or presyncope. gen- alert, awake,appears stated age cv- angel rate 30s-50s on tele at bedside and reg rhythm, normal s1,s2 lungs- ctabl neuro- AAOx3 Bradycardia, stable Mobitz I and II on tele lthis admission -appreciate EP cards input, cont BB wash out, EP monitoring for need for PPM early next week if no improvement HTN- hold coreg, cont acei/hctz further dx and plan as noted by resident <Art Urbano - Last Filed: 01/15/19 18:08> Hospitalist Progress Note - Encounter Date of Encounter: 01/15/19 Time of Encounter: 08:41 - Subjective Interval History: Mr. Joseph is a 78-year-old male admitted to our service with symptomatic bradycardia, found to be in second-degree heart block, with episodes of both type I and type II He is sitting comfortably in the chair when I am in the room, is pleasant, conversive. He reports no shortness of breath, chest pain, lightheadedness, syncope. He was very interested in his medical condition, with several questions. He states he started fluoxetine 3 weeks ago, and inquired if that could have initiated his issues. I told him it was likely multifactorial, and that I could not confidently say one or the other. He denies blurry vision, double vision, trouble swallowing or speaking, nausea, vomiting, diarrhea, constipation, black stool, bloody stool, edema, new numbness/weakness/tingling anywhere. - Exam Vitals: Temp Pulse Resp BP Pulse Ox 98.2 F 54 16 160/96 96 01/15/19 06:27 01/15/19 06:27 01/15/19 06:27 01/15/19 06:27 01/15/19 05:16 Exam: Gen: Awake and alert, no acute distress, well-nourished, well kempt Head: Normocephalic, atraumatic Eyes: EOMI, no scleral icterus ENT: Mucous membranes moist , no oropharyngeal erythema CV: S1-S2 present, regular at a rate of approximately 40, Pulm: CTAB, not tachypneic, no respiratory distress, no increased work of breathing Abd: Soft, nontender to palpation, obese, nondistended, no rebound or guarding. Bowel sounds present EXT: Grossly intact motor strength in all 4 extremities, no lower extremity edema, no distal cyanosis or pallor Skin: Warm, dry, intact, no rashes or lesions noted Neuro: Cranial nerves II-XII grossly intact, no focal neurologic deficits Psych: normal mood and affect, Answers questions with intact judgment, appropriate insight, and linear thought - Assessment and Plan (1) Second-degree heart block Current Visit: Yes Status: Acute Assessment and Plan: Appreciate recommendations of cardiology Patient's heart rate remains low Patient denies any symptoms at this time Echo shows LVEF 50-55%, septal motion abnormality consistent with pacer * Continue beta tho washout * PPM Thursday if the patient remains unchanged (2) Hypertension Current Visit: Yes Status: Chronic Assessment and Plan: * Holding all AV angélica blockers per Cardio (3) A-fib Current Visit: Yes Status: Chronic Assessment and Plan: No observed episodes of A-fib on recent loop recording or on telemetry here * no intervention indicated at this time DVT Prophylaxis: SCDs - Summary of Assessment and Plan Summary of Assessment and Plan: * BB washout * Tele monitoring with Defib pads in place at all times * Hold all AV angélica blockers - Time Spent with Patient Total time spent is greater than 50% in coordination of care (as documented) at patient's floor/unit and/or counseling patient: Internal Medicine: Result - Labs CBC & Chem 7: 01/15/19 03:34 01/15/19 03:34 Labs: Short CBC 01/15/19 Range/Units 03:34 WBC 8.3 (4.3-11.1) K/mcL Hgb 14.3 (12.9-16.9) g/dL Hct 43.1 (37.5-50.1) % Plt Count 171 (140-400) K/mcL Neutrophils # 5.2 (1.6-8.9) K/mcL BMP 01/15/19 03:34 Sodium 140 Potassium 3.9 Chloride 103 Carbon Dioxide 27 BUN 23 Creatinine 0.97 Glucose 99 Calcium 8.8 - Impressions Impressions Echocardiogram 01/13/19 21:46 Impressions: Sinus bradycardia, HR 30s, bundle branch block. Possible 2:1 AV block during study. LVEF 50-55%. Normal LV chamber size and function. Mild concentric left ventricular hypertrophy. Mild left ventricular diastolic dysfunction. Atypical septal motion consistent with paced rhythm. Normal right ventricular structure and function. Mild mitral regurgitation. Mild tricuspid regurgitation. Mild pulmonary hypertension. Left Ventricular Wall Motion: Rest Echo Findings All wall segments showed normal motion. Findings: Study Quality * Technically adequate exam. ECG Findings * Sinus bradycardia with a bundle branch block. Left Ventricle * LVEF 50-55%. * Normal LV chamber size and function. * Mild concentric left ventricular hypertrophy. * Mild left ventricular diastolic dysfunction. * Atypical septal motion consistent with paced rhythm. Right Ventricle * Normal right ventricular structure and function. Left Atrium * Mildly dilated left atrium. Right Atrium * Mildly dilated right atrium. Interatrial Septum * Interatrial septum not well evaluated. Aortic Valve * Trileaflet aortic valve. * No aortic regurgitation. * No aortic stenosis. Mitral Valve * Mild mitral annular calcification * Mild mitral regurgitation. * No mitral stenosis. Tricuspid Valve * Normal tricuspid valve structure. * Mild tricuspid regurgitation. * Mild pulmonary hypertension. Pulmonic Valve * Normal pulmonic valve structure and function. * No pulmonic regurgitation. Aorta * Normally sized aortic root. Pericardium * The pericardium appears normal. IVC * Normal IVC dimensions and inspiratory collapse. Pulmonary Artery * Normal visualized portions of the main pulmonary artery. <Art Urbano S - Last Filed: 01/15/19 18:08> (2) Hypertension Qualifiers: Hypertension type: essential hypertension Qualified Code(s): I10 - Essential (primary) hypertension (3) A-fib Qualifiers: Atrial fibrillation type: paroxysmal Qualified Code(s): I48.0 - Paroxysmal atrial fibrillation
[2019-01-15] MEDS: Lisinopril-HCTZ 20-12.5mg TABLET PO SCH (09:59)
--- NOTE | 2019-01-15 10:27 | Cardiology Progress Note ---
Date of Encounter: 01/15/19 Time of Encounter: 10:25 Assessment and Plan (1) AV block Current Visit: Yes Status: Acute Patient presented with presyncope, dizziness. Reports ongoing symptoms since September 2018. Loop recorder checked 12/13/18--no episodes of bradycardia, AV block. Presenting ECG: Mobitz type I, rate 65 BPM. Has been on Coreg 12.5 mg BID, last dose 01/13/19 AM. Telemetry reviewed, episodes of Wenkebach continued overnight. 12 hr tele AVG HR 46, longest pause 2.6 seconds. No significant electrolyte abnormality noted. TSH normal. Patient is hemodynamically stable. BB washout has been ~48 hours and bradycardia and intermittent AV block persist. TTE LVEF 50-55%. Mild cLVH. Mild LVDD. Mild MR, TR, [place]. Continue to hold AV angélica blockers. If no improvement in HR and AV block, anticipate PPM insertion Thursday 01/18. Continue to follow. (2) A-fib Current Visit: Yes Status: Chronic Hx of PAF s/p cryo ablation around 6 years ago. Reports Eliquis d/c'ed 1 year ago due to no PAF seen on loop recorder. Continue to monitor telemetry. Loop recorder checked last month 12/13/18--no PAF noted, no AV block. Frequent PACs. Qualifiers: Atrial fibrillation type: paroxysmal Qualified Code(s): I48.0 - Paroxysmal atrial fibrillation Discussion w patient/family: The assessment and plan as outlined above was discussed with the patient and/or family members who expressed understanding and agreement. All questions were answered. Thank you for involving us in the care of your patient. Please call with any questions. Subjective Principal diagnosis: AV block Interval history: No acute complaints this AM. Objective Vital Signs, Last 4 Hours Temp Pulse Resp BP 01/15/19 06:27 98.2 F 54 16 160/96 Vital Signs Temp Pulse Resp BP Pulse Ox 01/15/19 06:27 98.2 F 54 16 160/96 01/15/19 05:16 98.2 F 36 16 150/85 96 01/14/19 21:25 97.9 F 33 18 163/98 97 01/14/19 16:28 98.3 F 35 16 133/84 97 01/14/19 11:42 98.3 F 54 16 144/82 97 Intake and Output 01/14/19 01/15/19 01/15/19 23:59 07:59 15:59 Intake Total 240 / 960 480 / 480 Output Total 500 / 1999 Balance -260 / -1040 480 / 480 Intake: Oral 240 / 960 480 / 480 Output: Urine 500 / 1999 Other: Meal Dinner Breakfast Percent of Meal Consumed 100% 100% Weight 114.9 kg Patient Weight 01/15/19 23:59 Weight 114.9 kg General: Conversant, No Apparent Distress HEENT: Atraumatic, Normocephaly, Mucus Membranes Moist Neck: No JVD, Normal carotid pulses Cardiac: Reg Rate and Rhythm, Normal S1 and S2, No Murmur Lungs: Normal Breath Sounds, No Wheeze, Rales, Rhonchi Neuro: Alert and responsive, No focal deficits noted Abdomen: Soft, Non-Tender Skin: No rashes noted on visualized skin Musculoskeletal: No Chest Wall Tenderness Extremities: No Clubbing, No Cyanosis, No Edema, Normal Pulses Results 01/15/19 03:34 01/15/19 03:34 Lab Results 01/15/19 01/15/19 03:34 03:34 WBC 8.3 Hgb 14.3 Hct 43.1 Plt Count 171 Sodium 140 Potassium 3.9 Chloride 103 Carbon Dioxide 27 BUN 23 Creatinine 0.97 Glucose 99 Calcium 8.8 Short CBC 01/15/19 Range/Units 03:34 WBC 8.3 (4.3-11.1) K/mcL Hgb 14.3 (12.9-16.9) g/dL Hct 43.1 (37.5-50.1) % Plt Count 171 (140-400) K/mcL Neutrophils # 5.2 (1.6-8.9) K/mcL BMP 01/15/19 Range/Units 03:34 Sodium 140 (136-145) mEq/L Potassium 3.9 (3.5-5.1) mEq/L Chloride 103 (98-107) mEq/L Carbon Dioxide 27 (23-29) mEq/L BUN 23 (8-23) mg/dL Creatinine 0.97 (0.70-1.30) mg/dL Glucose 99 (70-105) mg/dL Calcium 8.8 (8.6-10.3) mg/dL Active Medications Acetaminophen (Tylenol) 650 mg PO Q6HR PRN PRN Reason: Pain Stop: 07/15/19 16:58 Lisinopril/HCTZ (Prinzide 20-12.5) 1 each PO DAILY NATASHA Stop: 07/16/19 09:01 Last Admin: 01/15/19 09:59 Dose: 1 each Documented by: Levothyroxine Sodium (Synthroid) 50 mcg PO 0630 NATASHA Stop: 07/16/19 06:31 Last Admin: 01/15/19 05:19 Dose: 50 mcg Documented by: Naloxone HCl (Narcan) 0.4 mg IVP Q2MPRN PRN PRN Reason: SEE COMMENTS Stop: 07/15/19 16:58 Simvastatin (Zocor) 20 mg PO HS NATASHA; Protocol Stop: 07/15/19 21:01 Last Admin: 01/14/19 21:15 Dose: 20 mg Documented by: - Imaging and Cardiology Echo: report reviewed - EKG Interpretation EKG results cardiology: other (12 hr tele AVG HR 46, longest pause 2.6 seconds) Consult Discharge Plan - Plan Referrals: Morris Villalobos MD [Primary Care Provider] -
--- NOTE | 2019-01-15 14:56 | Electrocardiograph Report ---
[place] [address] Test Date: 2019-01-14 Pat Name: Sha Joseph Department: 111 Room: 2NE17 Gender: M Inclusion Intern: : 1940 Requested By: Monique Tabares Order Number: [id number] Reading MD: Sonya Shaffer Measurements Intervals [place] Rate: 61 P: 37 ME: 254 QRS: -17 QRSD: 171 T: 148 QT: 466 QTc: 469 Interpretive Statements SINUS RHYTHM WITH FIRST DEGREE AV BLOCK LEFT BUNDLE BRANCH BLOCK [120+ ms QRS DURATION, 80+ ms Q/S IN V1/V2, 85+ ms R IN I/aVL/V5/V6] Electronically Signed On 01-15-2019 14:54:37 EDT by Sonya Shaffer
[2019-01-15] MEDS: DiphenhydraMINE CREAM 28.4 GM TUBE TP PRN (22:48)
[2019-01-16 06:32] LABS: BUN/Creatinine Ratio 25 (6-26); Blood Urea Nitrogen 28 mg/dL (8-23); Calcium 8.9 mg/dL (8.6-10.3); Carbon Dioxide 28 mEq/L (23-29); Chloride 107 mEq/L (98-107); Glucose 97 mg/dL (70-105); Magnesium 2.1 mg/dL (1.6-2.6); Osmolality,Calculated 289 (280-300); Potassium 3.7 mEq/L (3.5-5.1); Sodium 137 mEq/L (136-145); eGFR For African Americans > 60 (> 60); eGFR For Non-African Americans > 60 (> 60)
[2019-01-16] MEDS: Aspirin Enteric Coated 81 MG Tablet PO SCH (08:02)
[2019-01-16] MEDS: Lisinopril-HCTZ 20-12.5mg TABLET PO SCH (08:02)
--- NOTE | 2019-01-16 08:17 | Internal Med Progress Note ---
<Monique Tabares - Last Filed: 01/16/19 13:03> Hospitalist Progress Note - Encounter Date of Encounter: 01/16/19 - Exam Vitals: Temp Pulse Resp BP Pulse Ox 97.6 F 51 14 153/99 92 01/16/19 06:51 01/16/19 06:51 01/16/19 06:51 01/16/19 06:51 01/16/19 06:51 - Time Spent with Patient Total time spent is greater than 50% in coordination of care (as documented) at patient's floor/unit and/or counseling patient: Internal Medicine: Result - Labs CBC & Chem 7: 01/15/19 03:34 01/16/19 05:41 Labs: BMP 01/16/19 05:41 Sodium 137 Potassium 3.7 Chloride 107 Carbon Dioxide 28 BUN 28 H Creatinine 1.11 Glucose 97 Calcium 8.9 Consult Discharge Plan - Plan Referrals: oMrris Villalobos MD [Primary Care Provider] - - Attending Attestation I examined this patient and my medical decision-making was reviewed with the Resident Physician Dr Urbano. I agree with the documented findings, disposition and treatment plan as described except to the extent set forth below. Mr Joseph requires inpt hospitalization for symptomatic bradycardia with Type I and II AVBs requiring inpt monitoring and likely pacemaker awake, pleasant, no complaints, no presyncope, cp or sob gen- alert, awake,appears stated age cv- angel rate 50s on tele at bedside and reg rhythm, normal s1,s2 lungs- ctabl neuro- AAOx3 Bradycardia, stable Mobitz I and II on tele lthis admission -appreciate EP cards input, cont BB wash out, EP monitoring for need for PPM e william next week if no improvement HTN- holding coreg, cont acei/hctz further dx and plan as noted by resident <Art Urbano S - Last Filed: 01/16/19 21:19> Hospitalist Progress Note - Encounter Date of Encounter: 01/16/19 Time of Encounter: 08:45 - Subjective Interval History: Patient comfortably seated in a marry during interview. he remains completely asymptomatic, states that he was able to bathe, get up and go to the bathroom, and get around his room without any lightheadedness, shortness of breath, palpitations, or other symptoms. - Exam Vitals: Temp Pulse Resp BP Pulse Ox 97.6 F 51 14 153/99 92 01/16/19 06:51 01/16/19 06:51 01/16/19 06:51 01/16/19 06:51 01/16/19 06:51 Exam: Gen: Awake and alert, no acute distress, well-nourished, well kempt Head: Normocephalic, atraumatic Eyes: EOMI, no scleral icterus ENT: Mucous membranes moist , no oropharyngeal erythema CV: S1-S2 present, regular at a rate of approximately 50, Pulm: CTAB, not tachypneic, no respiratory distress, no increased work of breathing Abd: Soft, nontender to palpation, obese, nondistended, no rebound or guarding. Bowel sounds present EXT: Grossly intact motor strength in all 4 extremities, no lower extremity edema, no distal cyanosis or pallor Skin: Warm, dry, intact, no rashes or lesions noted Neuro: Cranial nerves II-XII grossly intact, no focal neurologic deficits Psych: normal mood and affect, Answers questions with intact judgment, ap propriate insight, and linear thought Exam and clinical situation unchanged from yesterday - Assessment and Plan (1) Second-degree heart block Current Visit: Yes Status: Acute Assessment and Plan: Appreciate recommendations of cardiology Patient's heart rate remains low Patient denies any symptoms at this time Echo shows LVEF 50-55%, septal motion abnormality consistent with pacer * Continue beta tho washout * PPM Thursday if the patient remains unchanged (2) Hypertension Current Visit: Yes Status: Chronic Assessment and Plan: Continue to hold all AV angélica blockers per cardio DVT Prophylaxis: SCDs - Summary of Assessment and Plan Summary of Assessment and Plan: * BB washout * Tele monitoring with Defib pads in place at all times * Hold all AV angélica blockers - Time Spent with Patient Total time spent is greater than 50% in coordination of care (as documented) at patient's floor/unit and/or counseling patient: Internal Medicine: Result - Labs CBC & Chem 7: 01/15/19 03:34 01/16/19 05:41 Labs: BMP 01/16/19 05:41 Sodium 137 Potassium 3.7 Chloride 107 Carbon Dioxide 28 BUN 28 H Creatinine 1.11 Glucose 97 Calcium 8.9 <Art Urbano S - Last Filed: 01/16/19 21:19> (2) Hypertension Qualifiers: Hypertension type: essential hypertension Qualified Code(s): I10 - Essential (primary) hypertension
[2019-01-16] MEDS ORDERED: FLUoxetine 20 MG CAPSULE PO SCH (09:00)
--- NOTE | 2019-01-16 10:33 | Cardiology Progress Note ---
Date of Encounter: 01/16/19 Time of Encounter: 09:00 Assessment and Plan (1) AV block Current Visit: Yes Status: Acute Patient presented with presyncope, dizziness. Reports ongoing symptoms since September 2018. Loop recorder checked 12/13/18--no episodes of bradycardia, AV block. Presenting ECG: Mobitz type I, rate 65 BPM. Has been on Coreg 12.5 mg BID, last dose 01/13/19 AM. Telemetry reviewed, episodes of Mobitz type I and II continued overnight. 12 hr tele AVG HR 50, longest pause 3.7 seconds. No significant electrolyte abnormality noted. TSH normal. Patient is hemodynamically stable. BB washout has been ~48 hours and bradycardia and intermittent AV block persist. TTE LVEF 50-55%. Mild cLVH. Mild LVDD. Mild MR, TR, [place]. Continue to hold AV angélica blockers. If no improvement in HR and AV block, anticipate PPM insertion (with loop removal) Thursday 01/18. Continue to follow. (2) A-fib Current Visit: Yes Status: Chronic Hx of PAF s/p cryo ablation around 6 years ago. Reports Eliquis d/c'ed 1 year ago due to no PAF seen on loop recorder. Continue to monitor telemetry. Loop recorder checked last month 12/13/18--no PAF noted, no AV block. Frequent PACs. Qualifiers: Atrial fibrillation type: paroxysmal Qualified Code(s): I48.0 - Paroxysmal atrial fibrillation Discussion w patient/family: The assessment and plan as outlined above was discussed with the patient and/or family members who expressed understanding and agreement. All questions were answered. Thank you for involving us in the care of your patient. Please call with any questions. The patient will be discussed and reviewed with Dr. Shaffer; changes to be made accordingly. Subjective Principal diagnosis: AV block Interval history: Seen and examined. No new CV complaints overnight. Objective Vital Signs, Last 4 Hours Temp Pulse Resp BP Pulse Ox 01/16/19 06:51 97.6 F 51 14 153/99 92 General: Conversant, No Apparent Distress HEENT: Atraumatic, Normocephaly, Mucus Membranes Moist Cardiac: Other (bradycardiac) Lungs: Normal Breath Sounds Neuro: Alert and responsive Abdomen: Soft Skin: No rashes noted on visualized skin Musculoskeletal: No Chest Wall Tenderness Extremities: No Edema, Normal Pulses Results 01/15/19 03:34 01/16/19 05:41 Lab Results 01/16/19 05:41 Sodium 137 Potassium 3.7 Chloride 107 Carbon Dioxide 28 BUN 28 H Creatinine 1.11 Glucose 97 Calcium 8.9 Magnesium 2.1 Active Medications Acetaminophen (Tylenol) 650 mg PO Q6HR PRN PRN Reason: Pain Stop: 07/15/19 16:58 Aspirin (Aspirin Ec) 81 mg PO DAILY NATASHA Stop: 07/18/19 09:01 Last Admin: 01/16/19 08:02 Dose: 81 mg Documented by: Diphenhydramine HCl (Benadryl) 1 appl TP TID PRN PRN Reason: Itching Stop: 07/17/19 22:27 Last Admin: 01/15/19 22:48 Dose: 1 appl Documented by: Lisinopril/HCTZ (Prinzide 20-12.5) 1 each PO DAILY NATASHA Stop: 07/16/19 09:01 Last Admin: 01/16/19 08:02 Dose: 1 each Documented by: Levothyroxine Sodium (Synthroid) 50 mcg PO 0630 NATASHA Stop: 07/16/19 06:31 Last Admin: 01/16/19 05:30 Dose: 50 mcg Documented by: Naloxone HCl (Narcan) 0.4 mg IVP Q2MPRN PRN PRN Reason: SEE COMMENTS Stop: 07/15/19 16:58 Simvastatin (Zocor) 20 mg PO HS NATASHA; Protocol Stop: 07/15/19 21:01 Last Admin: 01/15/19 20:30 Dose: 20 mg Documented by: - Imaging and Cardiology Echo: report reviewed Other Results: 12 hour tele: avg HR=50. Mobitz type I and II seen. - EKG Interpretation EKG results cardiology: personally reviewed Consult Discharge Plan - Plan Referrals: Morris Villalobos MD [Primary Care Provider] -
[2019-01-16] MEDS: DiphenhydraMINE CREAM 28.4 GM TUBE TP PRN ×2 (11:21→20:17)
[2019-01-17 01:49] LABS: BUN/Creatinine Ratio 25 (6-26); Blood Urea Nitrogen 32 mg/dL (8-23); Carbon Dioxide 25 mEq/L (23-29); Chloride 104 mEq/L (98-107); Glucose 101 mg/dL (70-105); Magnesium 2.1 mg/dL (1.6-2.6); Osmolality,Calculated 293 (280-300); Potassium 4.1 mEq/L (3.5-5.1); Sodium 138 mEq/L (136-145); eGFR For African Americans > 60 (> 60); eGFR For Non-African Americans 54 (> 60)
--- NOTE | 2019-01-17 07:50 | Internal Med Progress Note ---
<Monique Tabares - Last Filed: 01/17/19 12:40> Hospitalist Progress Note - Encounter Date of Encounter: 01/17/19 - Exam Vitals: Temp Pulse Resp BP Pulse Ox 98.5 F 64 18 135/76 93 01/17/19 11:00 01/17/19 11:00 01/17/19 11:00 01/17/19 11:00 01/17/19 11:00 - Time Spent with Patient Total time spent is greater than 50% in coordination of care (as documented) at patient's floor/unit and/or counseling patient: Internal Medicine: Result - Labs CBC & Chem 7: 01/15/19 03:34 01/17/19 01:13 Labs: BMP 01/17/19 01:13 Sodium 138 Potassium 4.1 Chloride 104 Carbon Dioxide 25 BUN 32 H Creatinine 1.29 Glucose 101 Calcium 9.0 Consult Discharge Plan - Plan Referrals: Morris Villalobos MD [Primary Care Provider] - - Attending Attestation I examined this patient and my medical decision-making was reviewed with the Resident Physician Dr Peck. I agree with the documented findings, disposition and treatment plan as described except to the extent set forth below. Mr Joseph requires inpt hospitalization for symptomatic bradycardia with Type I and II AVBs requiring inpt monitoring and likely pacemaker awake, pleasant,denies sob, cp, palpitations or lightheadedness gen- alert, awake,appears stated age cv- reg rate in 60s on tele and reg rhythm, normal s1,s2 lungs- ctabl, norm resp effort on room air neuro- AAOx3 Bradycardia, stable, HR range 30s-60s Mobitz I and II on tele this admission -appreciate EP cards input, cont BB wash out,npo p mn for PPM in am -holding home prozac due to side effect qt prolongation and other arrhythmias HTN- holding coreg, cont acei/hctz further dx and plan as noted by resident <Reinier Peck - Last Filed: 01/17/19 17:54> Hospitalist Progress Note - Encounter Date of Encounter: 01/17/19 Time of Encounter: 08:30 - Subjective Interval History: the patient is seen and examined at bedside. He has no acute complaints today. He is scheduled to undergo insertion of a pacer tomorrow morning by electrophysiology. At this time he is not having any issues with chest pains, shortness of breath, palpitations. He otherwise has no concerns, although he does have some anxieties about the procedure. He had no acute events overnight. - Exam Vitals: Temp Pulse Resp BP Pulse Ox 98.6 F 51 16 150/104 91 01/17/19 04:00 01/17/19 04:00 01/17/19 04:00 01/17/19 04:00 01/17/19 04:00 Exam: Gen: Vitals noted. No acute distress. Eyes: anicteric sclerae, moist conjunctivae; no lid-lag HENT: Atraumatic; oropharynx clear with moist mucous membranes and no mucosal ulcerations; normal hard and soft palate Neck: Trachea midline; supple, no thyromegaly or lymphadenopathy Cardiac: slow and irregular, no murmur, +S1/S2 Pulmonary: CTA bilaterally, no wheezes, rales or rhonchi, equal chest expansion Abdomen: soft, nontender, no guarding. No masses or hepatosplenomegaly MSK: ROM intact, no joint swelling noted Extremities: no BLE edema, nontender calf, no cyanosis or clubbing Skin: Normal temperature, turgor and texture; no rash, ulcers or subcutaneous nodules Neuro: moves all extremities, no focal deficits. Psych: Appropriate mood and behavior. A&Ox3 - Assessment and Plan (1) Second-degree heart block Current Visit: Yes Status: Acute Assessment and Plan: patient presented with second-degree heart block which alternate between type I and type II Mobitz. He does still currently remain in this rhythm, heart rate was between 35 and 40 while I was in the room. He is not currently symptomatic and is not having any problems at this time. He is scheduled for insertion of implanted pacemaker tomorrow. Per cardiology note, the patient will be able to be discharged on Thursday morning. (2) Hypertension Current Visit: Yes Status: Chronic Assessment and Plan: well controlled on home medications (3) Acute kidney injury Current Visit: Yes Status: Acute Assessment and Plan: mildly elevated serum creatinine indicating a very mild acute kidney injury Baseline serum creatinine 0.9, currently serum creatinine is 1.3 Suspect that this is prerenal in nature, however will hold JULI/Hctz in am I will start the patient on gentle IV fluid hydration and encourage by mouth hydration recheck labs in the morning DVT Prophylaxis: SCDs - Time Spent with Patient Total time spent is greater than 50% in coordination of care (as documented) at patient's floor/unit and/or counseling patient: Internal Medicine: Result - Labs CBC & Chem 7: 01/15/19 03:34 01/17/19 01:13 Labs: BMP 01/17/19 01:13 Sodium 138 Potassium 4.1 Chloride 104 Carbon Dioxide 25 BUN 32 H Creatinine 1.29 Glucose 101 Calcium 9.0 _ <Reinier Peck - Last Filed: 01/17/19 17:54> (2) Hypertension Qualifiers: Hypertension type: essential hypertension Qualified Code(s): I10 - Essential (primary) hypertension
[2019-01-17] MEDS: Lisinopril-HCTZ 20-12.5mg TABLET PO SCH (08:55)
[2019-01-17] MEDS: Aspirin Enteric Coated 81 MG Tablet PO SCH (08:55)
--- NOTE | 2019-01-17 09:30 | Cardiology Progress Note ---
Date of Encounter: 01/17/19 Time of Encounter: 09:27 Assessment and Plan (1) AV block Current Visit: Yes Status: Acute Patient presented with presyncope, dizziness. Reports ongoing symptoms since September 2018. Loop recorder checked 12/13/18--no episodes of bradycardia, AV block. Presenting ECG: Mobitz type I, rate 65 BPM. Has been on Coreg 12.5 mg BID, last dose 01/13/19 AM. Telemetry reviewed, episodes of Mobitz type I and II continued overnight. 12 hr tele AVG HR 56, longest pause 2.1 seconds. No significant electrolyte abnormality noted. TSH normal. Patient is hemodynamically stable. BB washout has been >72 hours and bradycardia and intermittent AV block persist. TTE LVEF 50-55%. Mild cLVH. Mild LVDD. Mild MR, TR, [place]. Continue to hold AV angélica blockers. Plan for PPM insertion (with loop removal) tomorrow, Thursday 01/18. Continue to follow. R/B/A discussed and pt agrees to proceed. (2) A-fib Current Visit: Yes Status: Chronic Hx of PAF s/p cryo ablation around 6 years ago. Reports Eliquis d/c'ed 1 year ago due to no PAF seen on loop recorder. Continue to monitor telemetry. Loop recorder checked last month 12/13/18--no PAF noted, no AV block. Frequent PACs. Qualifiers: Atrial fibrillation type: paroxysmal Qualified Code(s): I48.0 - Paroxysmal atrial fibrillation Discussion w patient/family: The assessment and plan as outlined above was discussed with the patient and/or family members who expressed understanding and agreement. All questions were answered. Thank you for involving us in the care of your patient. Please call with any questions. I will discuss all the above with Dr. Baltazar and make changes as necessary. Subjective Principal diagnosis: AV block Interval history: No acute complaints this AM. Objective Vital Signs, Last 4 Hours Temp Pulse Resp BP Pulse Ox 01/17/19 07:58 98.2 F 48 18 167/87 92 Vital Signs Temp Pulse Resp BP Pulse Ox 01/17/19 07:58 98.2 F 48 18 167/87 92 01/17/19 04:00 98.6 F 51 16 150/104 91 01/16/19 20:00 98.8 F 44 16 137/85 95 Intake and Output 09/22/19 09/23/19 09/23/19 23:59 07:59 15:59 Intake Total 480 / 840 0 / 360 360 / 360 Output Total 600 / 1225 1100 / 1100 Balance -120 / -385 -1100 / -740 360 / -740 Intake: Oral 480 / 840 0 / 360 360 / 360 Output: Urine 600 / 1225 1100 / 1100 Other: Meal Dinner Breakfast Percent of Meal Consumed 100% 100% Weight 116.8 kg Patient Weight 01/17/19 23:59 Weight 116.8 kg General: Conversant, No Apparent Distress HEENT: Atraumatic, Normocephaly, Mucus Membranes Moist Neck: No JVD, Normal carotid pulses Cardiac: Reg Rate and Rhythm, Normal S1 and S2, No Murmur Lungs: Normal Breath Sounds, No Wheeze, Rales, Rhonchi Neuro: Alert and responsive, No focal deficits noted Abdomen: Soft, Non-Tender Skin: No rashes noted on visualized skin Musculoskeletal: No Chest Wall Tenderness Extremities: No Clubbing, No Cyanosis, No Edema, Normal Pulses Results 01/15/19 03:34 01/17/19 01:13 Lab Results 01/17/19 01:13 Sodium 138 Potassium 4.1 Chloride 104 Carbon Dioxide 25 BUN 32 H Creatinine 1.29 Glucose 101 Calcium 9.0 Magnesium 2.1 BMP 01/17/19 Range/Units 01:13 Sodium 138 (136-145) mEq/L Potassium 4.1 (3.5-5.1) mEq/L Chloride 104 (98-107) mEq/L Carbon Dioxide 25 (23-29) mEq/L BUN 32 H (8-23) mg/dL Creatinine 1.29 (0.70-1.30) mg/dL Glucose 101 (70-105) mg/dL Calcium 9.0 (8.6-10.3) mg/dL Active Medications Acetaminophen (Tylenol) 650 mg PO Q6HR PRN PRN Reason: Pain Stop: 07/15/19 16:58 Aspirin (Aspirin Ec) 81 mg PO DAILY NATASHA Stop: 07/18/19 09:01 Last Admin: 01/17/19 08:55 Dose: 81 mg Documented by: Diphenhydramine HCl (Benadryl) 1 appl TP TID PRN PRN Reason: Itching Stop: 07/17/19 22:27 Last Admin: 01/16/19 20:17 Dose: 1 appl Documented by: Lisinopril/HCTZ (Prinzide 20-12.5) 1 each PO DAILY NATASHA Stop: 07/16/19 09:01 Last Admin: 01/17/19 08:55 Dose: 1 each Documented by: Levothyroxine Sodium (Synthroid) 50 mcg PO 0630 NATASHA Stop: 07/16/19 06:31 Last Admin: 01/17/19 05:53 Dose: 50 mcg Documented by: Naloxone HCl (Narcan) 0.4 mg IVP Q2MPRN PRN PRN Reason: SEE COMMENTS Stop: 07/15/19 16:58 Simvastatin (Zocor) 20 mg PO HS NATASHA; Protocol Stop: 07/15/19 21:01 Last Admin: 01/16/19 20:09 Dose: 20 mg Documented by: - Imaging and Cardiology Echo: report reviewed - EKG Interpretation EKG results cardiology: other (12 hr tele AVG HR 56, intermittent 2:1 AV block, wenkeback.) Consult Discharge Plan - Plan Referrals: Morris Villalobos MD [Primary Care Provider] -
[2019-01-17] MEDS ORDERED: 0.9 % Sodium Chloride 1,000 ML IVC SCH (18:00)
[2019-01-18 05:10] LABS: Prothrombin Time 11.2 Seconds (9.4-12.1)
[2019-01-18 05:18] LABS: BUN/Creatinine Ratio 25 (6-26); Blood Urea Nitrogen 24 mg/dL (8-23); Calcium 8.9 mg/dL (8.6-10.3); Carbon Dioxide 25 mEq/L (23-29); Chloride 106 mEq/L (98-107); Glucose 98 mg/dL (70-105); Osmolality,Calculated 292 (280-300); Potassium 3.9 mEq/L (3.5-5.1); Sodium 139 mEq/L (136-145); eGFR For African Americans > 60 (> 60); eGFR For Non-African Americans > 60 (> 60)
--- NOTE | 2019-01-18 08:13 | Internal Med Progress Note ---
<Monique Tabares - Last Filed: 01/18/19 13:53> Hospitalist Progress Note - Encounter Date of Encounter: 01/18/19 - Exam Vitals: Temp Pulse Resp BP Pulse Ox 98.1 F 57 16 161/87 91 01/18/19 06:50 01/18/19 10:56 01/18/19 10:56 01/18/19 10:56 01/18/19 10:56 - Time Spent with Patient Total time spent is greater than 50% in coordination of care (as documented) at patient's floor/unit and/or counseling patient: Internal Medicine: Result - Labs CBC & Chem 7: 01/15/19 03:34 01/18/19 04:41 Labs: BMP 01/18/19 04:41 Sodium 139 Potassium 3.9 Chloride 106 Carbon Dioxide 25 BUN 24 H Creatinine 0.95 Glucose 98 Calcium 8.9 - ABG Interpretation ABG results: PT/INR, D-dimer PT 11.2 Seconds (9.4-12.1) 01/18/19 04:41 Consult Discharge Plan - Plan Referrals: Morris Villalobos MD [Primary Care Provider] - - Attending Attestation I examined this patient and my medical decision-making was reviewed with the Resident Physician Dr Peck. I agree with the documented findings, disposition and treatment plan as described except to the extent set forth below. Mr Joseph requires inpt hospitalization for symptomatic bradycardia with Type I and II AVBs requiring inpt monitoring and pacemaker awake, no cp, pressure or palpitations gen- alert, awake,appears stated age cv- reg rate in 650s-60s on tele and reg rhythm, normal s1,s2 lungs- ctabl, norm resp effort on room air neuro- AAOx3 Bradycardia, stable, HR range 30s-60s Mobitz I and II on tele this admission -appreciate EP cards input, cont BB wash out,PPM today, then monitor overnight -holding home prozac due to side effect qt prolongation and other arrhythmias HTN- holding coreg, cont acei/hctz further dx and plan as noted by resident <Reinier Peck - Last Filed: 01/18/19 16:03> Hospitalist Progress Note - Encounter Date of Encounter: 01/18/19 Time of Encounter: 09:40 - Subjective Interval History: the patient is seen and examined in a chair at bedside this morning. He is feeling well and had no acute events overnight. He was able to drink a significant amount of fluids without any concerns. He is not feeling short of breath or having any chest pains. Overall he is asymptomatic and feels quite well. He has no acute complaints today. - Exam Vitals: Temp Pulse Resp BP Pulse Ox 98.1 F 63 16 163/97 95 01/18/19 06:50 01/18/19 06:50 01/18/19 06:50 01/18/19 06:50 01/18/19 06:50 Exam: Gen: Vitals noted. No acute distress. Eyes: anicteric sclerae, moist conjunctivae; no lid-lag HENT: Atraumatic; oropharynx clear with moist mucous membranes and no mucosal ulcerations; normal hard and soft palate Neck: Trachea midline; supple, no thyromegaly or lymphadenopathy Cardiac: slow and irregular, no murmur, +S1/S2 Pulmonary: CTA bilaterally, no wheezes, rales or rhonchi, equal chest expansion Abdomen: soft, nontender, no guarding. No masses or hepatosplenomegaly MSK: ROM intact, no joint swelling noted Extremities: no BLE edema, nontender calf, no cyanosis or clubbing Skin: Normal temperature, turgor and texture; no rash, ulcers or subcutaneous nodules Neuro: moves all extremities, no focal deficits. Psych: Appropriate mood and behavior. A&Ox3 - Assessment and Plan (1) Second-degree heart block Current Visit: Yes Status: Acute Assessment and Plan: patient presented with second-degree heart block which alternate between type I and type II Mobitz. He does still currently remain in this rhythm, heart rate has improved overnight and is primarily in the 60's. Plan for pacer today with EP. (2) Hypertension Current Visit: Yes Status: Chronic Assessment and Plan: Resume home meds with resolution of JUAN LUIS (3) Acute kidney injury Current Visit: Yes Status: Resolved Assessment and Plan: JUAN LUIS has resolved following fluid administration - Time Spent with Patient Total time spent is greater than 50% in coordination of care (as documented) at patient's floor/unit and/or counseling patient: Internal Medicine: Result - Labs CBC & Chem 7: 01/15/19 03:34 01/18/19 04:41 Labs: BMP 01/18/19 04:41 Sodium 139 Potassium 3.9 Chloride 106 Carbon Dioxide 25 BUN 24 H Creatinine 0.95 Glucose 98 Calcium 8.9 - ABG Interpretation ABG results: PT/INR, D-dimer PT 11.2 Seconds (9.4-12.1) 01/18/19 04:41 <Reinier Peck - Last Filed: 01/18/19 16:03> (2) Hypertension Qualifiers: Hypertension type: essential hypertension Qualified Code(s): I10 - Essential (primary) hypertension
--- NOTE | 2019-01-18 09:32 | Event Note ---
Date of Encounter: 01/18/19 Time of Encounter: 09:31 - Cardiology Event Note Discussed and reviewed with Dr. Seth Shaffer. Plan for PPM insertion and loop removal today. Intermittent AV block persists. R/B/A discussed and pt agrees to proceed.
[2019-01-18] MEDS: Aspirin Enteric Coated 81 MG Tablet PO SCH (09:37)
[2019-01-18] MEDS: Lisinopril-HCTZ 20-12.5mg TABLET PO SCH (09:37)
--- NOTE | 2019-01-18 11:23 | Pre-Sedation Evaluation ---
Pre-sedation evaluation - Pre-sedation checklist Date of procedure: 01/18/19 Recent Vitals: Last Vital Signs Temp 98.1 F 01/18/19 06:50 Pulse 57 01/18/19 10:56 Resp 16 01/18/19 10:56 BP 161/87 01/18/19 10:56 Pulse Ox 91 01/18/19 10:56 H&P (including ROS) documented in medical record: Yes Previous reaction to sedatives/anesthetics: No Dietary Status: NPO after Midnight Airway Assessment: Patient can open mouth completely, TMJ function normal, Micrognathia (under-bite, receding chin) absent Dentition: No loose teeth or bridges Possible difficult airway: No ASA Classification *see protocol: CLASS II-Mild systemic disease Plan of Care: Pt appropriate candidate for procedure/moderate/conscious sedation, Risks/benefits of procedure/sedation discussed w/ patient/family
[2019-01-18] MEDS ORDERED: 0.9 % Sodium Chloride 500 ML ONE ×2 (11:50→13:38)
[2019-01-18] MEDS ORDERED: 0.9 % Sodium Chloride 1,000 ML ONE ×2 (11:51→12:11)
[2019-01-18] MEDS ORDERED: Water for inj. (sterile) 10 ML ONE (11:51)
[2019-01-18] MEDS ORDERED: CeFAZolin Syr 2,000MG/20 ML 2,000 MG/20 ML SYRINGE IVPB ONE (12:00)
[2019-01-18] MEDS ORDERED: *HR* FentaNYL (PF) 100 MCG/2 ML VIAL ONE (12:11)
[2019-01-18] MEDS ORDERED: *HR* Midazolam HCl 2 MG/2 ML VIAL ONE ×2 (12:11→13:38)
[2019-01-18] MEDS ORDERED: *HR* OxyCODONE Immed Rel 5 MG TABLET PO PRN (14:17)
[2019-01-18] MEDS: Silver Sulfadiazine 50 GM TUBE TP SCH (20:28)
[2019-01-19 04:46] LABS: BUN/Creatinine Ratio 20 (6-26); Blood Urea Nitrogen 21 mg/dL (8-23); Calcium 8.8 mg/dL (8.6-10.3); Carbon Dioxide 25 mEq/L (23-29); Chloride 103 mEq/L (98-107); Glucose 90 mg/dL (70-105); Osmolality,Calculated 287 (280-300); Potassium 3.9 mEq/L (3.5-5.1); Sodium 137 mEq/L (136-145); eGFR For African Americans > 60 (> 60); eGFR For Non-African Americans > 60 (> 60)
[2019-01-19] MEDS: Silver Sulfadiazine 50 GM TUBE TP SCH (09:03)
[2019-01-19] MEDS: Aspirin Enteric Coated 81 MG Tablet PO SCH (09:04)
[2019-01-19] MEDS: Lisinopril-HCTZ 20-12.5mg TABLET PO SCH (09:04)
--- NOTE | 2019-01-19 09:14 | Discharge Summary ---
<Reinier Peck - Last Filed: 01/19/19 18:05> - NOTES TO OUTPATIENT PROVIDER Notes to Outpatient Provider: Presented with second-degree heart block alternating between type I and type II. Underwent placement of pacer. Tolerated procedure well, discharged home with no medication changes. Date of Encounter: 01/19/19 Time of Encounter: 09:50 - Discharge Diagnosis (1) Second-degree heart block Priority: Primary Status: Acute (2) Hypertension Priority: Secondary Status: Chronic Qualifiers: Hypertension type: essential hypertension Qualified Code(s): I10 - Essential (primary) hypertension (3) Acute kidney injury Priority: Secondary Status: Resolved Hospital course: Dear Doctors, I recently had the opportunity to care for this patient during their recent hospital stay at [facility]. Mr. Joseph is a 78-year-old gentleman with history of atrial fibrillation, hypertension, hypothyroidism, previous TIAs who presented to [facility] due to heart rate in the 30s. At the time of admission, the patient was complaining of bradycardia as well as episodes of progressive lightheadedness, occasional shortness of breath, dizziness with exertion over the past 2-3 months. In the emergency department, the patient was found to have an irregular EKG demonstrating a second-degree AV angélica block alternated between type I and type II with a heart rate between 30 and 40. He was admitted, electrophysiology was consulted and agreed to the insertion of an implanted pacemaker. The patient had this done yesterday and has been monitored for approximately 24 hours without complication. He had his pacer interrogated today which was without incident. He will be discharged with follow-up to [facility] with Dr. Seth Shaffer. Dx: Second-degree heart block alternating between type I and type II Follow up: Follow up with electrophysiology, Dr. Seth Shaffer Med changes: No medication changes Mental status: awake, fully oriented Code status: Full Code Time spent on discharge: 35 minutes It has been my pleasure participating in this patient's care. Please contact me with any questions or concerns regarding their hospital stay. Sincerely, Reinier Peck, DO Discharge discussed with: patient, nurse, social work, case management, marketing sales consultant - Time Spent with Patient Total time spent providing and/or coordinating discharge services: - Discharge Medications Prescriptions: Continued Carvedilol 12.5 mg PO BID Levothyroxine [Synthroid] 50 mcg PO 0630 Simvastatin [Zocor] 20 mg PO HS Potassium Chloride [K-Tab ER] 20 meq PO DAILY Lisinopril-HCTZ 20-12.5 [Prinzide 20-12.5] 1 each PO DAILY Aspirin [Lo-Dose Aspirin EC] 81 mg PO DAILY FLUoxetine HCl [Prozac] 20 mg PO DAILY Glucosamine HCl 500 mg PO BID Multivitamin [Daily Multiple Vitamin] 1 tab PO DAILY [place]-3/Dha/Epa/Fish Oil [Fish Oil [place]-3 EC 1,200 mg] 1 cap PO DAILY Ubidecarenone/Vit E Acetate [Co Q-10 100 mg Softgel] 1 cap PO DAILY Home Medications: Carvedilol 12.5 mg PO BID 04/14/17 [History] Levothyroxine [Synthroid] 50 mcg PO 0630 04/14/17 [History] Lisinopril-HCTZ 20-12.5 [Prinzide 20-12.5] 1 each PO DAILY 04/14/17 [History] Potassium Chloride [K-Tab ER] 20 meq PO DAILY 04/14/17 [History] Simvastatin [Zocor] 20 mg PO HS 04/14/17 [History] Aspirin [Lo-Dose Aspirin EC] 81 mg PO DAILY 01/14/19 [History] FLUoxetine HCl [Prozac] 20 mg PO DAILY 01/14/19 [History] Glucosamine HCl 500 mg PO BID 01/14/19 [History] Multivitamin [Daily Multiple Vitamin] 1 tab PO DAILY 01/14/19 [History] [place]-3/Dha/Epa/Fish Oil [Fish Oil [place]-3 EC 1,200 mg] 1 cap PO DAILY 01/14/19 [History] Ubidecarenone/Vit E Acetate [Co Q-10 100 mg Softgel] 1 cap PO DAILY 01/14/19 [History] Allergies/Adverse Reactions: Allergy/AdvReac Type Severity Reaction Status Date / Time ciprofloxacin [From Cipro] Allergy Unknown Rash Verified 01/13/19 13:16 Sulfa (Sulfonamide Allergy Unknown Vomiting Verified 01/13/19 13:16 Antibiotics) coban Allergy Mild Rash Uncoded 01/13/19 13:16 Date of admission: 01/15/19 12:20 Primary care physician: Morris Villalobos MD Consults: 01/13/19 17:00 Consult to Electrophysiology (EP) [CONS] Routine Consulting Provider: Electrophysiology Marilou Reason for Consult: symptomatic bradycardia with AVB, known hx LBBB and afib ablation Call Completed: Yes Discharging clinician: Reinier Peck Anticipated date of discharge: 01/19/19 - Constitutional Vitals: Temp Pulse Resp BP Pulse Ox 98.4 F 60 16 152/100 93 01/19/19 06:34 01/19/19 06:34 01/19/19 03:40 01/19/19 06:34 01/19/19 06:34 General appearance: Present: A&O X 3, no acute distress Exam: Gen: Vitals noted. No acute distress. Eyes: anicteric sclerae, moist conjunctivae; no lid-lag HENT: Atraumatic; oropharynx clear with moist mucous membranes and no mucosal ulcerations; normal hard and soft palate Neck: Trachea midline; supple, no thyromegaly or lymphadenopathy Cardiac: Regular rate and rhythm, no murmur, +S1/S2 Pulmonary: CTA bilaterally, no wheezes, rales or rhonchi, equal chest expansion Abdomen: soft, nontender, no guarding. No masses or hepatosplenomegaly MSK: ROM intact, no joint swelling noted Extremities: no BLE edema, nontender calf, no cyanosis or clubbing Skin: Normal temperature, turgor and texture; no rash, ulcers or subcutaneous nodules Neuro: moves all extremities, no focal deficits. Psych: Appropriate mood and behavior. A&Ox3 - Patient Status Disposition: Home, Self-Care Condition: Fair Functional capacity at discharge: independent ambulation Overall status at discharge: patient is back to baseline - Discharge Instructions Instructions: Atrial Fibrillation (DC), Pacemaker (DC), Chronic Hypertension (DC), Bradycardia (DC) Follow Up With: Morris Villalobos MD [Primary Care Provider] - 01/26/19 1:30 pm Additional Instructions: ACTIVITY: Moderate activity for the next 7 days. No lifting more than 5 pounds (gallon of milk) for 4-6 weeks. Avoid lifting your arm on the same side as the device for 4 weeks. BATHING /SHOWERING: Do not remove the large bandage over the site for 2 days. Do not allow the device to get wet for 7-10 days. You may bathe/shower, but do not use soap and water on the site. When bathing, keep the site dry by covering with Saran wrap or a towel. WOUND CARE: The white steri-strips will start to peel away and come off after 14 days, or your doctor will remove them after [address] anything into or on top of the incision. Do not use cotton swabs. Do not use any antibiotic ointment or Vitamin E on the site. REMINDERS: You may use electrical devices, such as, microwaves, hair dryers, electric razors, electric blankets, etc. as long as they are in good condition and kept 6-8 inches away from the device. It is recommended to use cell phones on the opposite side of your device. Notify security personnel at the airport that you have a device before you go through airport security screening. When at places with security monitors, such as a grocery store, do not linger near these monitors. It is fine to walk past them in a normal manner. Refer to your owners manual for more specific directions. CARRY YOUR PACEMAKER/ICD CARD WITH YOU AT ALL TIMES Return to work as instructed per physician Resume driving as instructed per physician Keep all scheduled follow up appointments Resume medications as instructed Contact [facility] ( ) if: You develop excessive bleeding from insertion or wound site not controlled by applying pressure You develop a fever greater than 101 degrees Fahrenheit Your incision becomes reddened at or around the site Your incision develops yellowish or greenish drainage or development of white pimple-like bumps You experience excessive pain You develop swelling in your ankles You experience muscle switching You develop excessive hiccupping If you experience chest pain, shortness of breath, dizziness, or extreme tiredness, stop the activity and rest. Please notify [facility] office if you experience any of these symptoms and they are not relieved by rest please call 911! - Diet and Activity Activity: increase activity as tolerated Diet: low salt diet <Flynn Hoyos - Last Filed: 01/19/19 18:55> Date of Encounter: 01/19/19 - Discharge Diagnosis (1) Mobitz (type) II atrioventricular block Status: Acute (2) A-fib Status: Chronic Qualifiers: Atrial fibrillation type: paroxysmal Qualified Code(s): I48.0 - Paroxysmal atrial fibrillation (3) Hypertension Status: Chronic Qualifiers: Hypertension type: essential hypertension Qualified Code(s): I10 - Essential (primary) hypertension Hospital course: Mr. Joseph is a 78 year old male - Time Spent with Patient Total time spent providing and/or coordinating discharge services: Date of admission: 01/15/19 12:20 Primary care physician: Morris Villalobos MD Consults: 01/13/19 17:00 Consult to Electrophysiology (EP) [CONS] Routine Consulting Provider: Electrophysiology Marilou Reason for Consult: symptomatic bradycardia with AVB, known hx LBBB and afib ablation Call Completed: Yes - Constitutional Vitals: Temp Pulse Resp BP Pulse Ox 98.4 F 89 16 136/86 93 01/19/19 06:34 01/19/19 10:54 01/19/19 03:40 01/19/19 10:54 01/19/19 10:54 - Attending Attestation I examined this patient and my medical decision-making was reviewed with the Resident Physician on 01/19/19. I agree with the documented findings, disposition and treatment plan as described except to the extent set forth below. Mr Joseph has been admitted for heart block. He is s/p pacer. He is afebrile and feels good. He is ready for discharge home. Exam Alert Comfortable Heart reg No wheeze Abd soft plan D/C home today D/C time 25min
--- NOTE | 2019-01-19 09:52 | Electrophysiology ProgressNote ---
Date of Encounter: 01/19/19 Time of Encounter: 09:50 Assessment and Plan (1) AV block Current Visit: Yes Status: Acute Patient presented with presyncope, dizziness. Reports ongoing symptoms since September 2018. Loop recorder checked 12/13/18--no episodes of bradycardia, AV block. Presenting ECG: Mobitz type I, rate 65 BPM. Has been on Coreg 12.5 mg BID, last dose 01/13/19 AM. No significant electrolyte abnormality noted. TSH normal. BB washout >72 hours and bradycardia and intermittent AV block persisted. TTE LVEF 50-55%. Mild cLVH. Mild LVDD. Mild MR, [place], [place]. S/P PPM insertion (with loop removal) 01/18. CXR okay. PPM interrogation okay. Left chest device site healing well. No bleeding, hematoma or ecchymosis. Steri strips intact. Midsternal steri strips intact s/p loop removal. Restrictions discussed. Will resume BB given PAF hx and HTN now that PPM is inserted. Cardiology/EP signing off. Reconsult PRN. Will coordinate outpt follow up in 1 week for wound check, 4-6 weeks device check and in [address] Seth Shaffer. (2) A-fib Current Visit: Yes Status: Chronic Hx of PAF s/p cryo ablation around 6 years ago. Reports Eliquis d/c'ed 1 year ago due to no PAF seen on loop recorder. Continue to monitor telemetry. Loop recorder checked last month 12/13/18--no PAF noted, no AV block. Frequent PACs. Qualifiers: Atrial fibrillation type: paroxysmal Qualified Code(s): I48.0 - Paroxysmal atrial fibrillation Discussion w patient/family: The assessment and plan as outlined above was discussed with the patient and/or family members who expressed understanding and agreement. All questions were answered. Thank you for involving us in the care of your patient. Please call with any questions. I will discuss all the above with Dr. Seth Shaffer and make changes as necessary. Subjective Principal diagnosis: AV block Interval history: No acute complaints this AM. Objective Vital Signs, Last 4 Hours Temp Pulse BP Pulse Ox 01/19/19 06:34 98.4 F 60 152/100 93 Vital Signs Temp Pulse Resp BP Pulse Ox 01/19/19 06:34 98.4 F 60 152/100 93 01/19/19 03:40 98 F 70 16 149/91 92 01/19/19 00:26 98.7 F 75 20 168/101 94 01/18/19 19:08 98.1 F 76 18 130/89 93 01/18/19 10:56 57 16 161/87 91 Intake and Output 01/18/19 01/19/19 01/19/19 23:59 07:59 15:59 Intake Total 100 / 340 400 / 520 120 / 520 Output Total 320 / 2320 850 / 850 Balance -220 / -1980 -450 / -330 120 / -330 Intake: IV Fluids 100 / 100 Ancef 2,000 MG In 0.9 % Sodium 100 / 100 Chloride 100 ML @ 200 mls/hr IVPB Q8H [facility] Rx#:[id number] Oral 400 / 520 120 / 520 Output: Urine 320 / 2320 850 / 850 Other: Meal Breakfast Percent of Meal Consumed 80% Stool Size Moderate Stool Consistency soft Stool Characteristics Normal for Patient Stool Color Brown # Bowel Movements 1 Weight 114.6 kg Patient Weight 01/19/19 23:59 Weight 114.6 kg General: Conversant, No Apparent Distress HEENT: Atraumatic, Normocephaly, Mucus Membranes Moist Neck: No JVD, Normal carotid pulses Cardiac: Reg Rate and Rhythm, Normal S1 and S2, No Murmur Lungs: Normal Breath Sounds, No Wheeze, Rales, Rhonchi Neuro: Alert and responsive, No focal deficits noted Abdomen: Soft, Non-Tender Skin: No rashes noted on visualized skin Musculoskeletal: No Chest Wall Tenderness Extremities: No Clubbing, No Cyanosis, No Edema, Normal Pulses Results 01/15/19 03:34 01/19/19 03:36 Lab Results 01/19/19 03:36 Sodium 137 Potassium 3.9 Chloride 103 Carbon Dioxide 25 BUN 21 Creatinine 1.05 Glucose 90 Calcium 8.8 BMP 01/19/19 Range/Units 03:36 Sodium 137 (136-145) mEq/L Potassium 3.9 (3.5-5.1) mEq/L Chloride 103 (98-107) mEq/L Carbon Dioxide 25 (23-29) mEq/L BUN 21 (8-23) mg/dL Creatinine 1.05 (0.70-1.30) mg/dL Glucose 90 (70-105) mg/dL Calcium 8.8 (8.6-10.3) mg/dL Impressions Chest X-Ray 01/18/19 14:56 IMPRESSION: Interval placement of a left chest dual lead pacemaker. No pneumothorax. D/ / 01/18/2019 15:01:56 Hima Ardon MD / fortunato Interpreting Provider: Hima Ardon MD Chest X-Ray 01/19/19 08:21 IMPRESSION: The left subclavian transvenous pacemaker appears adequately positioned. No pneumothorax. D/ / Julian Luciano MD / Julian Luciano MD Interpreting Provider: Julian Luciano MD Active Medications Acetaminophen (Tylenol) 650 mg PO Q6HR PRN PRN Reason: Pain Stop: 07/15/19 16:58 Aspirin (Aspirin Ec) 81 mg PO DAILY [facility] Stop: 07/18/19 09:01 Last Admin: 01/19/19 09:04 Dose: 81 mg Documented by: Carvedilol (Coreg) 12.5 mg PO BIDWM [facility]; Protocol Stop: 07/21/19 09:48 Diphenhydramine HCl (Benadryl) 1 appl TP TID PRN PRN Reason: Itching Stop: 07/17/19 22:27 Last Admin: 01/16/19 20:17 Dose: 1 appl Documented by: Lisinopril/HCTZ (Prinzide 20-12.5) 1 each PO DAILY [facility] Stop: 07/16/19 09:01 Last Admin: 01/19/19 09:04 Dose: 1 each Documented by: Hydrocortisone (Cortaid) 1 appl TP TID NATASHA Stop: 07/21/19 01:01 Last Admin: 01/19/19 09:04 Dose: 1 appl Documented by: Levothyroxine Sodium (Synthroid) 50 mcg PO 0630 [facility] Stop: 07/16/19 06:31 Last Admin: 01/19/19 05:15 Dose: 50 mcg Documented by: Naloxone HCl (Narcan) 0.4 mg IVP Q2MPRN PRN PRN Reason: SEE COMMENTS Stop: 07/15/19 16:58 Oxycodone HCl (Roxicodone) 5 mg PO Q4HR PRN; Protocol PRN Reason: Severe Pain Stop: 07/20/19 14:18 Last Admin: 01/19/19 00:40 Dose: 5 mg Documented by: Silver Sulfadiazine (Silvadene) 1 appl TP BID NATASHA Stop: 07/20/19 21:01 Last Admin: 01/19/19 09:03 Dose: Not Given Documented by: Simvastatin (Zocor) 20 mg PO HS NATASHA; Protocol Stop: 07/15/19 21:01 Last Admin: 01/18/19 20:27 Dose: 20 mg Documented by: Consult Discharge Plan - Plan Instructions: Atrial Fibrillation (DC), Pacemaker (DC), Chronic Hypertension (DC), Bradycardia (DC) Additional Instructions: ACTIVITY: Moderate activity for the next 7 days. No lifting more than 5 pounds (gallon of milk) for 4-6 weeks. Avoid lifting your arm on the same side as the device for 4 weeks. BATHING /SHOWERING: Do not remove the large bandage over the site for 2 days. Do not allow the device to get wet for 7-10 days. You may bathe/shower, but do not use soap and water on the site. When bathing, keep the site dry by covering with Saran wrap or a towel. WOUND CARE: The white steri-strips will start to peel away and come off after 14 days, or your doctor will remove them after [address] anything into or on top of the incision. Do not use cotton swabs. Do not use any antibiotic ointment or Vitamin E on the site. REMINDERS: You may use electrical devices, such as, microwaves, hair dryers, electric razors, electric blankets, etc. as long as they are in good condition and kept 6-8 inches away from the device. It is recommended to use cell phones on the opposite side of your device. Notify security personnel at the airport that you have a device before you go through airport security screening. When at places with security monitors, such as a grocery store, do not linger near these monitors. It is fine to walk past them in a normal manner. Refer to your owners manual for more specific directions. CARRY YOUR PACEMAKER/ICD CARD WITH YOU AT ALL TIMES Return to work as instructed per physician Resume driving as instructed per physician Keep all scheduled follow up appointments Resume medications as instructed Contact [facility] ( ) if: You develop excessive bleeding from insertion or wound site not controlled by applying pressure You develop a fever greater than 101 degrees Fahrenheit Your incision becomes reddened at or around the site Your incision develops yellowish or greenish drainage or development of white pimple-like bumps You experience excessive pain You develop swelling in your ankles You experience muscle switching You develop excessive hiccupping If you experience chest pain, shortness of breath, dizziness, or extreme tiredness, stop the activity and rest. Please notify [facility] office if you experience any of these symptoms and they are not relieved by rest please call 911! Referrals: Morris Villalobos MD [Primary Care Provider] - 01/26/19 1:30 pm
[2019-01-19 10:57] VITALS: BP 136/86
== END 2019-01-19 12:45 | disposition home or self-care (01) | DRG 243 ==
LOC: EMEROOARM 13:09 → 2NENU 13:09 → SUATTDRO 16:34 → 2NENU 18:23 → SUATTDRO 01-15 12:20
PROVIDERS: ADMIT Internal Medicine; ATTEND Internal Medicine